=== PATIENT | female | born 1980 | race Two or more races ===

== ENCOUNTER 2017-05-07 20:27 | Emergency (ER) | payer MEDICAID, OTHER ==
[2017-05-07 20:42] VITALS: BP 155/83
[2017-05-07] MEDS ORDERED: Sodium Chloride 0.9% 1,000 ML IV ONE (20:45)
[2017-05-07] MEDS ORDERED: Ondansetron 4 MG/2 ML SDV IVPUSH ONE (20:45)
[2017-05-07] MEDS ORDERED: Ketorolac 30 MG/ML SDV IVPUSH ONE (20:45)
--- NOTE | 2017-05-07 20:48 | EDM.PDOC ---
<Ezra Gimenez - Last Filed: 05/08/17 06:55> ED HPI GENERAL MEDICAL PROBLEM - General Chief Complaint: Abdominal Pain Stated Complaint: Abdominal pain Time Seen by Provider: 05/07/17 20:30 - Related Data Allergies Allergy/AdvReac Type Severity Reaction Status Date / Time ibuprofen AdvReac Stomach Verified 05/08/17 17:36 Ache Home Meds: Home Meds Ciprofloxacin [IJD: Ciprofloxacin HCl] 500 mg PO BID #20 tab 05/07/17 [Rx] metroNIDAZOLE [Flagyl] 500 mg PO TID #21 tablet 05/07/17 [Rx] traMADol [Ultram] 50 mg PO Q6H PRN #10 tablet 05/07/17 [Rx] Dicyclomine [Bentyl] 20 mg PO Q6H PRN #8 tablet 05/08/17 [Rx] Course - Vital Signs Last Recorded V/S: Last Vital Signs Temp 100.8 F H 05/07/17 20:40 Pulse 108 H 05/07/17 20:40 Resp 20 05/07/17 20:40 BP 155/83 H 05/07/17 20:40 Pulse Ox 98 05/07/17 20:40 - Orders/Labs/Meds Labs: Laboratory Tests 05/07/17 05/07/17 05/07/17 Range/Units 20:40 20:50 20:50 WBC (3.98-10.04) K/mm3 RBC (3.98-5.22) M/mm3 Hgb (11.2-15.7) gm/L Hct (34.1-44.9) % MCV (79.4-94.8) fl MCH (25.6-32.2) pg MCHC (32.2-35.5) g/dl RDW Std Deviation (36.4-46.3) fL Plt Count (182-369) K/mm3 MPV (9.4-12.3) fl Neutrophils % (Manual) (40-60) % Band Neutrophils % (0-10) % Lymphocytes % (Manual) (20-40) % Atypical Lymphs % % Monocytes % (Manual) (2-10) % Eosinophils % (Manual) (0.7-5.8) % Basophils % (Manual) (0.1-1.2) Platelet Estimate RBC Morph Comment Sodium (136-145) mEq/L Potassium (3.5-5.1) mEq/L Chloride (98-107) mEq/L Carbon Dioxide (21-32) mEq/L Anion Gap (5-15) BUN (7-18) mg/dL Creatinine (0.55-1.02) mg/dL Est Cr Clr Drug Dosing mL/min Estimated GFR (MDRD) (>60) mL/min BUN/Creatinine Ratio (14-18) Glucose (74-106) mg/dL Calcium (8.5-10.1) mg/dL Total Bilirubin (0.2-1.0) mg/dL AST (15-37) U/L ALT (14-59) U/L Alkaline Phosphatase (46-116) U/L C-Reactive Protein (<1.0) mg/dL Total Protein (6.4-8.2) g/dl Albumin (3.4-5.0) g/dl Globulin gm/dL Albumin/Globulin Ratio (1-2) Lipase 74 (73-393) U/L Urine Color Yellow (Yellow) Urine Appearance Clear (Clear) Urine pH 7.0 (5.0-8.0) Ur Specific [place] 1.020 (1.005-1.030) Urine Protein Negative (Negative) Urine Glucose (UA) Negative (Negative) Urine Ketones Negative (Negative) Urine Occult Blood Negative (Negative) Urine Nitrite Negative (Negative) Urine Bilirubin Negative (Negative) Urine Urobilinogen 0.2 (0.2-1.0) Ur Leukocyte Esterase Negative (Negative) Urine RBC 0-5 (0-5) /hpf Urine WBC 0-5 (0-5) /hpf Ur Epithelial Cells 0-5 (0-5) /hpf Urine Bacteria Not seen (FEW) /hpf Urine Mucus Few (FEW) /hpf H. pylori IgG Antibody Positive H (NEGATIVE) 05/07/17 05/07/17 Range/Units 20:54 20:54 WBC 13.27 H (3.98-10.04) K/mm3 RBC 5.13 (3.98-5.22) M/mm3 Hgb 13.3 (11.2-15.7) gm/L Hct 40.4 (34.1-44.9) % MCV 78.8 L (79.4-94.8) fl MCH 25.9 (25.6-32.2) pg MCHC 32.9 (32.2-35.5) g/dl RDW Std Deviation 40.1 (36.4-46.3) fL Plt Count 259 (182-369) K/mm3 MPV 11.7 (9.4-12.3) fl Neutrophils % (Manual) 89 H (40-60) % Band Neutrophils % 0 (0-10) % Lymphocytes % (Manual) 8 L (20-40) % Atypical Lymphs % 0 % Monocytes % (Manual) 3 (2-10) % Eosinophils % (Manual) 0 L (0.7-5.8) % Basophils % (Manual) 0 L (0.1-1.2) Platelet Estimate Adequate RBC Morph Comment Normal Sodium 141 (136-145) mEq/L Potassium 3.2 L (3.5-5.1) mEq/L Chloride 101 (98-107) mEq/L Carbon Dioxide 27 (21-32) mEq/L Anion Gap 16.2 H (5-15) BUN 13 (7-18) mg/dL Creatinine 0.8 (0.55-1.02) mg/dL Est Cr Clr Drug Dosing 81.19 mL/min Estimated GFR (MDRD) > 60 (>60) mL/min BUN/Creatinine Ratio 16.3 (14-18) Glucose 102 (74-106) mg/dL Calcium 9.3 (8.5-10.1) mg/dL Total Bilirubin 0.6 (0.2-1.0) mg/dL AST 11 L (15-37) U/L ALT 18 (14-59) U/L Alkaline Phosphatase 90 (46-116) U/L C-Reactive Protein 10.7 H* (<1.0) mg/dL Total Protein 8.0 (6.4-8.2) g/dl Albumin 4.2 (3.4-5.0) g/dl Globulin 3.8 gm/dL Albumin/Globulin Ratio 1.1 (1-2) Lipase (73-393) U/L Urine Color (Yellow) Urine Appearance (Clear) Urine pH (5.0-8.0) Ur Specific [place] (1.005-1.030) Urine Protein (Negative) Urine Glucose (UA) (Negative) Urine Ketones (Negative) Urine Occult Blood (Negative) Urine Nitrite (Negative) Urine Bilirubin (Negative) Urine Urobilinogen (0.2-1.0) Ur Leukocyte Esterase (Negative) Urine RBC (0-5) /hpf Urine WBC (0-5) /hpf Ur Epithelial Cells (0-5) /hpf Urine Bacteria (FEW) /hpf Urine Mucus (FEW) /hpf H. pylori IgG Antibody (NEGATIVE) Meds: Medications Discontinued Medications Generic Name Dose Route Start Last Admin Trade Name Freq PRN Reason Stop Dose Admin Diatrizoate Meglum/Diatrizoate Sod 90 ml 05/07/17 22:11 05/07/17 22:51 Gastrografin 37% PO 05/07/17 22:12 90 ml ONETIME ONE Administration Dicyclomine HCl 20 mg 05/07/17 23:48 05/07/17 23:54 Bentyl PO 05/07/17 23:49 20 mg ONETIME ONE Administration Fentanyl 50 mcg 05/07/17 23:03 05/07/17 23:08 Sublimaze IVPUSH 05/07/17 23:04 50 mcg ONETIME ONE Administration Hydromorphone HCl 0.5 mg 05/07/17 21:30 05/07/17 21:38 Dilaudid IVPUSH 05/07/17 21:31 0.5 mg ONETIME ONE Administration Sodium Chloride 1,000 mls @ 999 mls/hr 05/07/17 20:45 05/07/17 20:57 Normal Saline IV 05/07/17 21:45 999 mls/hr ONETIME ONE Administration Levofloxacin/Dextrose 750 mg/ 150 mls @ 100 mls/hr 05/07/17 23:02 05/07/17 23 :09 Premix IV 05/08/17 00:31 100 mls/hr ONETIME ONE Administration Iopamidol 120 ml 05/07/17 22:11 05/07/17 22:51 Isovue-300 (61%) IVPUSH 05/07/17 22:12 120 ml ONETIME ONE Administration Ketorolac Tromethamine 30 mg 05/07/17 20:45 05/07/17 20:59 Toradol IVPUSH 05/07/17 20:46 30 mg ONETIME ONE Administration Lorazepam 0.5 mg 05/07/17 23:48 05/07/17 23:55 Ativan IVPUSH 05/07/17 23:49 0.5 mg ONETIME ONE Administration Metronidazole 500 mg 05/07/17 23:07 05/07/17 23:43 Flagyl PO 05/07/17 23:08 500 mg ONETIME ONE Administration Ondansetron HCl 4 mg 05/07/17 20:45 05/07/17 20:58 Zofran IVPUSH 05/07/17 20:46 4 mg ONETIME ONE Administration Sodium Chloride 10 ml 05/07/17 20:45 05/07/17 22:51 Saline Flush FLUSH 10 ml ASDIRECTED PRN Administration Keep Vein Open - Re-Assessments/Exams Free Text/Narrative Re-Assessment/Exam: 05/07/17 23:49 patient is having increased pain and pain medication has not really helped her much. She has had Dilaudid 0.5 mg and fentanyl 50 g IV as well as Toradol 30 mg IV for pain relief. She reports a strong cramping component to her pain. Therefore try Bentyl 20 mg by mouth and Ativan 0.5 mg IV adjuvant to her current pain medications. She is currently receiving 6 750 mg of Levaquin IV for diverticulitis diagnosed by CT exam. Departure - Departure Time of Disposition: 00:55 Disposition: Home, Self-Care 01 Clinical Impression: Diverticulitis Qualifiers: Diverticulitis site: large intestine Diverticulitis bleeding: without bleeding Diverticulitis complication: without perforation or abscess Qualified Code(s): K57.32 - Diverticulitis of large intestine without perforation or abscess without bleeding - Discharge Information Prescriptions: Ciprofloxacin [IJD: Ciprofloxacin HCl] 500 mg PO BID #20 tab Dicyclomine [Bentyl] 20 mg PO Q6H PRN #8 tablet PRN Reason: Abdominal cramps/diarrhea metroNIDAZOLE [Flagyl] 500 mg PO TID #21 tablet traMADol [Ultram] 50 mg PO Q6H PRN #10 tablet PRN Reason: Pain (Moderate 4-6) Instructions: Diverticulitis Referrals: PCP,None [Primary Care Provider] - Forms: ED Department Discharge Additional Instructions: Tylenol or Ibuprofen as needed for pain Tramadol 1 tab every 6 hours as needed for more severe pain Flagyl 500mg every 8 hours for a total of 7 days Ciprofloxacin 500mg twice a day for 10 days Follow-up with your primary care provider next week for recheck If you do not have a primary care provider, call our clinic to establish with one of our providers. Call [phone] to schedule Recommend colonoscopy after diverticulitis has been treated and has resolved. Return to ER with new or worsening symptoms Drink at least 80 oz of clear fluids per day Gillespie, gentle diet until symptoms resolve <Flor Jason - Last Filed: 05/10/17 19:41> ED HPI GENERAL MEDICAL PROBLEM - General Source of Information: Reports: Patient, RN Notes Reviewed History Limitations: Reports: No Limitations - History of Present Illness INITIAL COMMENTS - FREE TEXT/NARRATIVE: 37 year old female presents to the ED today with 2-3 day history of LUQ abdominal pain that radiates around to her left flank. Today she developed nausea and vomiting. She describes the emesis as "jello like." She denies coffee ground emesis. She denies heart burn, diarrhea, constipation, bloody stools, black stools, tarry stools, or change in bowel habits. No history of diverticulitis or h pylori. She reports frequency with urination but no dysuria or urgency. She's felt feverish and chilled. She denies medical history. She's had a tubal ligation but otherwise no other abdominal surgeries. Left Abdomen Pain Score (Numeric/FACES): 8 Past Medical History SPARE PERSON History: Reports: - Past Surgical History Female Surgical History: Reports: Tubal Ligation Social & Family History - Family History Family Medical History: Noncontributory - Tobacco Use Smoking Status *Q: Never Smoker - Caffeine Use Caffeine Use: Reports: Coffee, Soda - Recreational Drug Use Recreational Drug Use: No ED ROS GENERAL - Review of Systems Review Of Systems: See Below Constitutional: Reports: Fever, Chills, Malaise, Night Sweats Respiratory: Reports: No Symptoms. Denies: Shortness of Breath, Cough Cardiovascular: Reports: No Symptoms. Denies: Chest Pain GI/Abdominal: Reports: Abdominal Pain, Decreased Appetite, Nausea, Vomiting. Denies: Black Stool, Bloody Stool, Constipation, Diarrhea, Hematemesis, Melena : Reports: Flank Pain, Frequency. Denies: Dysuria, Hematuria, Urgency ED EXAM, GI/ABD - Physical Exam Exam: See Below Exam Limited By: No Limitations General Appearance: Alert, WD/WN, Mild Distress Respiratory/Chest: No Respiratory Distress, Lungs Clear, Normal Breath Sounds Cardiovascular: Normal Peripheral Pulses, No Murmur, Tachycardia GI/Abdominal Exam: Normal Bowel Sounds, Soft, No Distention, Guarding, Tender ( LUQ and LLQ). No: Rigid, Rebound, Mass Back Exam: Normal Inspection, Full Range of Motion, CVA Tenderness (L). No: CVA Tenderness (R) Course - Orders/Labs/Meds Labs: Laboratory Tests 05/07/17 05/07/17 05/07/17 Range/Units 20:40 20:50 20:50 WBC (3.98-10.04) K/mm3 RBC (3.98-5.22) M/mm3 Hgb (11.2-15.7) gm/L Hct (34.1-44.9) % MCV (79.4-94.8) fl MCH (25.6-32.2) pg MCHC (32.2-35.5) g/dl RDW Std Deviation (36.4-46.3) fL Plt Count (182-369) K/mm3 MPV (9.4-12.3) fl Neutrophils % (Manual) (40-60) % Band Neutrophils % (0-10) % Lymphocytes % (Manual) (20-40) % Atypical Lymphs % % Monocytes % (Manual) (2-10) % Eosinophils % (Manual) (0.7-5.8) % Basophils % (Manual) (0.1-1.2) Platelet Estimate RBC Morph Comment Sodium (136-145) mEq/L Potassium (3.5-5.1) mEq/L Chloride (98-107) mEq/L Carbon Dioxide (21-32) mEq/L Anion Gap (5-15) BUN (7-18) mg/dL Creatinine (0.55-1.02) mg/dL Est Cr Clr Drug Dosing mL/min Estimated GFR (MDRD) (>60) mL/min BUN/Creatinine Ratio (14-18) Glucose (74-106) mg/dL Calcium (8.5-10.1) mg/dL Total Bilirubin (0.2-1.0) mg/dL AST (15-37) U/L ALT (14-59) U/L Alkaline Phosphatase (46-116) U/L C-Reactive Protein (<1.0) mg/dL Total Protein (6.4-8.2) g/dl Albumin (3.4-5.0) g/dl Globulin gm/dL Albumin/Globulin Ratio (1-2) Lipase 74 (73-393) U/L Urine Color Yellow (Yellow) Urine Appearance Clear (Clear) Urine pH 7.0 (5.0-8.0) Ur Specific [place] 1.020 (1.005-1.030) Urine Protein Negative (Negative) Urine Glucose (UA) Negative (Negative) Urine Ketones Negative (Negative) Urine Occult Blood Negative (Negative) Urine Nitrite Negative (Negative) Urine Bilirubin Negative (Negative) Urine Urobilinogen 0.2 (0.2-1.0) Ur Leukocyte Esterase Negative (Negative) Urine RBC 0-5 (0-5) /hpf Urine WBC 0-5 (0-5) /hpf Ur Epithelial Cells 0-5 (0-5) /hpf Urine Bacteria Not seen (FEW) /hpf Urine Mucus Few (FEW) /hpf H. pylori IgG Antibody Positive H (NEGATIVE) 05/07/17 05/07/17 Range/Units 20:54 20:54 WBC 13.27 H (3.98-10.04) K/mm3 RBC 5.13 (3.98-5.22) M/mm3 Hgb 13.3 (11.2-15.7) gm/L Hct 40.4 (34.1-44.9) % MCV 78.8 L (79.4-94.8) fl MCH 25.9 (25.6-32.2) pg MCHC 32.9 (32.2-35.5) g/dl RDW Std Deviation 40.1 (36.4-46.3) fL Plt Count 259 (182-369) K/mm3 MPV 11.7 (9.4-12.3) fl Neutrophils % (Manual) 89 H (40-60) % Band Neutrophils % 0 (0-10) % Lymphocytes % (Manual) 8 L (20-40) % Atypical Lymphs % 0 % Monocytes % (Manual) 3 (2-10) % Eosinophils % (Manual) 0 L (0.7-5.8) % Basophils % (Manual) 0 L (0.1-1.2) Platelet Estimate Adequate RBC Morph Comment Normal Sodium 141 (136-145) mEq/L Potassium 3.2 L (3.5-5.1) mEq/L Chloride 101 (98-107) mEq/L Carbon Dioxide 27 (21-32) mEq/L Anion Gap 16.2 H (5-15) BUN 13 (7-18) mg/dL Creatinine 0.8 (0.55-1.02) mg/dL Est Cr Clr Drug Dosing 81.19 mL/min Estimated GFR (MDRD) > 60 (>60) mL/min BUN/Creatinine Ratio 16.3 (14-18) Glucose 102 (74-106) mg/dL Calcium 9.3 (8.5-10.1) mg/dL Total Bilirubin 0.6 (0.2-1.0) mg/dL AST 11 L (15-37) U/L ALT 18 (14-59) U/L Alkaline Phosphatase 90 (46-116) U/L C-Reactive Protein 10.7 H* (<1.0) mg/dL Total Protein 8.0 (6.4-8.2) g/dl Albumin 4.2 (3.4-5.0) g/dl Globulin 3.8 gm/dL Albumin/Globulin Ratio 1.1 (1-2) Lipase (73-393) U/L Urine Color (Yellow) Urine Appearance (Clear) Urine pH (5.0-8.0) Ur Specific [place] (1.005-1.030) Urine Protein (Negative) Urine Glucose (UA) (Negative) Urine Ketones (Negative) Urine Occult Blood (Negative) Urine Nitrite (Negative) Urine Bilirubin (Negative) Urine Urobilinogen (0.2-1.0) Ur Leukocyte Esterase (Negative) Urine RBC (0-5) /hpf Urine WBC (0-5) /hpf Ur Epithelial Cells (0-5) /hpf Urine Bacteria (FEW) /hpf Urine Mucus (FEW) /hpf H. pylori IgG Antibody (NEGATIVE) - Re-Assessments/Exams Free Text/Narrative Re-Assessment/Exam: CBC reveals WBC of 13,000 with no bands. CRP is 10.7. CMP reveals K 3.2, anion gap of 16. Otherwise CMP is normal. UA is negative for infection. H Pylori is positive. Lipase WNL [id number] Patient was treated with Toradol and Dilaudid initially. She had moderate improvement in pain. We switched to Fentanyl to see if this would offer better pain relief. CT of abdomen/pelvis obtained with oral contrast, read by Nexvet. Impression indicates diverticulitis with no perforation. Discussed with Dr. Gimenez who recommends that we treat her with Levaquin 750mg IV x1 now and Flagyl 500m PO now. Plan will be to discharge after IV antibiotics complete. This is the end of my shift. Dr. Gimenez will be assuming care. Departure - Departure Condition: Good
[2017-05-07] MEDS: Sodium Chloride 0.9% 10 ML Syringe FLUSH PRN ×2 (21:01→22:51)
[2017-05-07] MEDS ORDERED: HYDROmorphone 0.5 MG/0.5 ML Syringe IVPUSH ONE (21:30)
[2017-05-07] MEDS ORDERED: Diatrizoate Meglumine/Diatrizoate Sodium 37% 120 ML Bottle PO ONE (22:11)
[2017-05-07] MEDS ORDERED: Iopamidol 612 MG/ML 150 ML Bottle IVPUSH ONE (22:11)
[2017-05-07] MEDS ORDERED: Levofloxacin/Dextrose 5%-Water 750 MG in Premix Bag 1 BAG IV ONE (23:02)
[2017-05-07] MEDS ORDERED: fentaNYL 100 MCG/2 ML SDV IVPUSH ONE (23:03)
[2017-05-07] MEDS ORDERED: metroNIDAZOLE 500 MG Tab PO ONE (23:07)
[2017-05-07] MEDS ORDERED: LORazepam 2 MG/ML MDV IVPUSH ONE (23:48)
[2017-05-07] MEDS ORDERED: Dicyclomine 10 MG Cap PO ONE (23:48)
--- NOTE | 2017-05-08 07:17 | CT ---
CT abdomen and pelvis Technique: Multiple axial sections were obtained from above the dome of the diaphragm inferiorly through the pubic symphysis. Intravenous and oral contrast was utilized. Delayed images were also obtained through the bladder. Comparison: No prior abdominal imaging. Findings: Inflammatory type change is seen within the pararenal fascia and around portions of the descending colon. Diverticuli are seen in this area and inflammatory findings most likely represent diverticulitis. No fluid collections of abscess are seen at this time. No free air is identified. Visualized lung bases show nothing acute. Liver shows no focal abnormality. Spleen appears within normal limits. Adrenal glands show no nodule. Kidneys show symmetric contrast enhancement without hydronephrosis or mass. Pancreas is within normal limits. Gallbladder shows no calcified gallstones. Slight increased stool is noted within the colon. Mesenteric lymph nodes are seen within the right lower abdomen believed to be incidental. No pelvic mass or adenopathy is seen. Delayed images show contrast within the distal ureters and within the bladder. 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 Impression: 1. Left-sided inflammatory change, most likely representing diverticulitis within the left colon. No abscess is seen at this time. 2. Mild increased stool within the colon and other incidental findings as described above. Diagnostic code #3 Agree with preliminary report issued by [facility] ([facility] preliminary report dictated on 05/08/17, 12:05 AM Central Time)
== END 2017-05-08 00:54 | disposition home or self-care (01) ==
LOC: JD.ED 20:27
DX: K57.32 Diverticulitis of large intestine without perforation or abscess without bleeding (principal); Z88.6 Allergy status to analgesic agent; Z79.899 Other long term (current) drug therapy
CPT/HCPCS: 36415; 74177; 80053; 81001; 83690; 85025; 86140; 86677; 96361; 96365; 96366; 96375; 99284; A9270; J1170; J1885; J1956; J2060; J2405; J3010; J7040; J7050; Q9963; Q9967; 99223

== ENCOUNTER 2017-05-08 08:55 | Inpatient (IN) | payer MEDICAID, OTHER ==
--- NOTE | 2017-05-08 09:28 | EDM.PDOC ---
ED HPI GENERAL MEDICAL PROBLEM - General Chief Complaint: Abdominal Pain Stated Complaint: ABDOMINAL PAIN Time Seen by Provider: 05/08/17 09:28 - History of Present Illness INITIAL COMMENTS - FREE TEXT/NARRATIVE: 37-year-old female (returns emergency room with worsening abdominal pain. The patient was discharged early this morning with a diagnosis of diverticulitis she's been taking her medications as directed however her pain just continues to get worse. She denies fevers or chills but has significant left-sided abdominal discomfort. She has not had any chest pain breathing difficulties or shortness of breath her pain is limited to her abdomen occasionally lives to the epigastric area. She has not had any bloody stools. She was discharged on Cipro and Flagyl. Treatments [employer]: Reports: Other Medication(s) Abdominal Pain Score (Numeric/FACES): 10 Headache Pain Score (Numeric/FACES): 6 - Related Data Allergies Allergy/AdvReac Type Severity Reaction Status Date / Time ibuprofen AdvReac Stomach Verified 05/08/17 17:36 Ache Home Meds: Home Meds Ciprofloxacin [IJD: Ciprofloxacin HCl] 500 mg PO BID #20 tab 05/07/17 [Rx] metroNIDAZOLE [Flagyl] 500 mg PO TID #21 tablet 05/07/17 [Rx] traMADol [Ultram] 50 mg PO Q6H PRN #10 tablet 05/07/17 [Rx] Dicyclomine [Bentyl] 20 mg PO Q6H PRN #8 tablet 05/08/17 [Rx] Past Medical History - Past Health History Medical/Surgical History: Denies Medical/Surgical History Gastrointestinal History: Reports: Diverticulosis [employer]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 Denies: Bloody Stool : Reports: No Symptoms Neurological: Reports: No Symptoms ED EXAM, GI/ABD - Physical Exam Exam: See Below Exam Limited By: No Limitations General Appearance: Alert, Moderate Distress (From the discomfort) Head: Atraumatic, Normocephalic Neck: Normal Inspection, Supple, Non-Tender, Full Range of Motion Respiratory/Chest: No Respiratory Distress, Lungs Clear, Normal Breath Sounds Cardiovascular: Regular Rate, Rhythm, No Edema, No Murmur GI/Abdominal Exam: Normal Bowel Sounds, Soft, No Distention, Other (Patient has significant discomfort mostly in the left side worse over the sigmoid colon.). No: Guarding, Rigid, Rebound Course - Vital Signs Last Recorded V/S: Last Vital Signs Temp 36.7 C 05/09/17 12:23 Pulse 72 05/09/17 12:23 Resp 17 05/09/17 12:23 BP 109/90 05/09/17 12:23 Pulse Ox 96 05/09/17 12:23 - Orders/Labs/Meds Orders: Medication Orders Acetaminophen (Tylenol) 650 mg PO Q6H PRN PRN Reason: Pain (Mild 1-3) Last Admin: 05/09/17 08:46 Dose: 650 mg Famotidine (Pepcid) 20 mg PO BID [facility] Last Admin: 05/09/17 08:47 Dose: 20 mg Admin: 05/08/17 21:26 Dose: 20 mg Admin: 05/08/17 16:56 Dose: 20 mg Hydralazine HCl (Apresoline) 10 mg PO Q6H PRN PRN Reason: Hypertension Hydromorphone HCl (Dilaudid) 0.25 mg IVPUSH Q2H PRN PRN Reason: Pain (severe 7-10) Hyoscyamine (Hyomax-Sl) 0.125 mg SL Q6H PRN PRN Reason: Other Dextrose/Sodium Chloride (Dextrose 5%-1/2 Ns) 1,000 mls @ 100 mls/hr IV ASDIRECTED [facility] Last Admin: 05/09/17 04:16 Dose: 100 mls/hr Infusion: 05/09/17 04:16 Dose: 100 mls/hr Admin: 05/08/17 18:24 Dose: 100 mls/hr Metronidazole 500 mg/ Premix 100 mls @ 100 mls/hr IV Q6H [facility] Last Admin: 05/09/17 09:04 Dose: 100 mls/hr Infusion: 05/09/17 05:16 Dose: 100 mls/hr Admin: 05/09/17 04:16 Dose: 100 mls/hr Infusion: 05/08/17 22:27 Dose: 100 mls/hr Admin: 05/08/17 21:27 Dose: 100 mls/hr Infusion: 05/08/17 17:38 Dose: 100 mls/hr Admin: 05/08/17 16:38 Dose: 100 mls/hr Levofloxacin/Dextrose 500 mg/ (Premix) 100 mls @ 100 mls/hr IV Q24H [facility] Last Admin: 05/09/17 08:48 Dose: 100 mls/hr Potassium Chloride 10 meq/ (Premix) 100 mls @ 100 mls/hr IV Q1H [facility] Stop: 05/09/17 16:59 Ketorolac Tromethamine (Toradol) 30 mg IV Q6H PRN PRN Reason: Pain (moderate 4-6) Last Admin: 05/09/17 10:21 Dose: 30 mg Admin: 05/08/17 21:53 Dose: 30 mg Magnesium Sulfate (Pharmacy To Dose - Magnesium Replacement) 1 dose .XX ASDIRECTED PRN PRN Reason: RX to Dose Metoprolol Tartrate (Lopressor) 5 mg IVPUSH Q4H PRN PRN Reason: Tachycardia Ondansetron HCl (Zofran) 4 mg IV Q6H PRN PRN Reason: Nausea/Vomiting Ondansetron HCl (Zofran Odt) 4 mg PO Q4H PRN PRN Reason: Abdominal Cramping Last Admin: 05/09/17 12:20 Dose: 4 mg Potassium Chloride (Pharmacy To Dose - Potassium Replacement) 1 dose .XX ASDIRECTED PRN PRN Reason: RX to Dose Saccharomyces Boulardii (Florastor) 250 mg PO BID [facility] Last Admin: 05/09/17 08:47 Dose: 250 mg Admin: 05/08/17 21:27 Dose: 250 mg Admin: 05/08/17 16:38 Dose: 250 mg Temazepam (Restoril) 15 mg PO BEDTIME PRN PRN Reason: Sleep Labs: Laboratory Tests 05/08/17 05/08/17 05/08/17 Range/Units 10:44 10:44 10:44 WBC 13.84 H (3.98-10.04) K/mm3 RBC 4.89 (3.98-5.22) M/mm3 Hgb 12.8 (11.2-15.7) gm/L Hct 38.8 (34.1-44.9) % MCV 79.3 L (79.4-94.8) fl MCH 26.2 (25.6-32.2) pg MCHC 33.0 (32.2-35.5) g/dl RDW Std Deviation 40.7 (36.4-46.3) fL Plt Count 228 (182-369) K/mm3 MPV 11.5 (9.4-12.3) fl Neutrophils % (Manual) 85 H (40-60) % Band Neutrophils % 0 (0-10) % Lymphocytes % (Manual) 9 L (20-40) % Atypical Lymphs % 0 % Monocytes % (Manual) 6 (2-10) % Eosinophils % (Manual) 0 L (0.7-5.8) % Basophils % (Manual) 0 L (0.1-1.2) Platelet Estimate Adequate Hypochromasia Moderate RBC Morph Comment Not Reportable Sodium 140 (136-145) mEq/L Potassium 3.1 L (3.5-5.1) mEq/L Chloride 102 (98-107) mEq/L Carbon Dioxide 25 (21-32) mEq/L Anion Gap 16.1 H (5-15) BUN 10 (7-18) mg/dL Creatinine 0.7 (0.55-1.02) mg/dL Est Cr Clr Drug Dosing 92.79 mL/min Estimated GFR (MDRD) > 60 (>60) mL/min BUN/Creatinine Ratio 14.3 (14-18) Glucose 102 (74-106) mg/dL Calcium 8.9 (8.5-10.1) mg/dL Total Bilirubin 0.7 (0.2-1.0) mg/dL AST 10 L (15-37) U/L ALT 14 (14-59) U/L Alkaline Phosphatase 75 (46-116) U/L C-Reactive Protein 19.2 H* (<1.0) mg/dL Total Protein 7.5 (6.4-8.2) g/dl Albumin 3.6 (3.4-5.0) g/dl Globulin 3.9 gm/dL Albumin/Globulin Ratio 0.9 L (1-2) HCG, Qual Negative (NEGATIVE) Meds: Medications Generic Name Dose Route Start Last Admin Trade Name Freq PRN Reason Stop Dose Admin Acetaminophen 650 mg 05/08/17 16:19 05/09/17 08:46 Tylenol PO 650 mg Q6H PRN Administration Pain (Mild 1-3) Famotidine 20 mg 05/08/17 16:45 05/09/17 08:47 Pepcid PO 20 mg BID NETTE Administration Hydralazine HCl 10 mg 05/08/17 16:34 Apresoline PO Q6H PRN Hypertension Hydromorphone HCl 0.25 mg 05/08/17 15:30 Dilaudid IVPUSH Q2H PRN Pain (severe 7-10) Hyoscyamine 0.125 mg 05/09/17 12:20 Hyomax-Sl SL Q6H PRN Other Dextrose/Sodium Chloride 1,000 mls @ 100 mls/hr 05/08/17 15:30 05/09/17 04:16 Dextrose 5%-1/2 Ns IV 100 mls/hr ASDIRECTED NETTE Administration Metronidazole 500 mg/ Premix 100 mls @ 100 mls/hr 05/08/17 16:00 05/09/17 09: 04 IV 100 mls/hr Q6H NETTE Administration Levofloxacin/Dextrose 500 mg/ 100 mls @ 100 mls/hr 05/09/17 09:00 05/09/17 08 :48 Premix IV 100 mls/hr Q24H NETTE Administration Potassium Chloride 10 meq/ 100 mls @ 100 mls/hr 05/09/17 15:00 Premix IV 05/09/17 16:59 Q1H NETTE Ketorolac Tromethamine 30 mg 05/08/17 15:30 05/09/17 10:21 Toradol IV 30 mg Q6H PRN Administration Pain (moderate 4-6) Magnesium Sulfate 1 dose 05/08/17 16:45 Pharmacy To Dose - Magnesium Replacement .XX ASDIRECTED PRN RX to Dose Metoprolol Tartrate 5 mg 05/08/17 16:34 Lopressor IVPUSH Q4H PRN Tachycardia Ondansetron HCl 4 mg 05/08/17 15:30 Zofran IV Q6H PRN Nausea/Vomiting Ondansetron HCl 4 mg 05/09/17 12:03 05/09/17 12:20 Zofran Odt PO 4 mg Q4H PRN Administration Abdominal Cramping Potassium Chloride 1 dose 05/08/17 16:45 Pharmacy To Dose - Potassium Replacement .XX ASDIRECTED PRN RX to Dose Saccharomyces Boulardii 250 mg 05/08/17 16:00 05/09/17 08:47 Florastor PO 250 mg BID NETTE Administration Temazepam 15 mg 05/08/17 16:20 Restoril PO BEDTIME PRN Sleep Discontinued Medications Generic Name Dose Route Start Last Admin Trade Name Freq PRN Reason Stop Dose Admin Acetaminophen 650 mg 05/08/17 15:30 Tylenol RECTAL Q4H PRN Pain (mild 1-3) Dicyclomine HCl 20 mg 05/08/17 14:54 05/08/17 15:26 Bentyl PO 20 mg Q6H PRN Administration Abdominal cramps/diarrhea Diphenhydramine HCl 25 mg 05/08/17 16:50 05/08/17 16:56 Benadryl IVPUSH 05/08/17 16:51 25 mg ONETIME ONE Administration Enoxaparin Sodium 40 mg 05/08/17 16:30 05/08/17 19:00 Lovenox SUBCUT Not Given DAILY [facility] Hydromorphone HCl 0.5 mg 05/08/17 10:22 05/08/17 10:47 Dilaudid IVPUSH 05/08/17 10:23 0.5 mg ONETIME ONE Administration Lactated Ringer's 1,000 mls @ 150 mls/hr 05/08/17 10:30 05/08/17 10:43 Ringers, Lactated IV 150 mls/hr ASDIRECTED NETTE Administration Levofloxacin/Dextrose 500 mg/ 100 mls @ 100 mls/hr 05/08/17 17:00 05/08/17 16 :37 Premix IV 100 mls/hr Q24H NETTE Administration Magnesium Sulfate 1 dose 05/09/17 08:30 Pharmacy To Dose - Magnesium Replacement .XX ASDIRECTED [facility] Ondansetron HCl 4 mg 05/08/17 10:22 05/08/17 10:44 Zofran IVPUSH 05/08/17 10:23 4 mg ONETIME ONE Administration Potassium Chloride 60 meq 05/08/17 15:50 05/08/17 17:06 Potassium Chloride PO 05/08/17 15:51 Not Given ONETIME ONE Potassium Chloride 60 meq 05/08/17 17:17 05/08/17 17:42 Klor-Con M20 PO 05/08/17 17:18 60 meq ONETIME ONE Administration Potassium Chloride 1 dose 05/09/17 08:30 Pharmacy To Dose - Potassium Replacement .XX ASDIRECTED [facility] Potassium Chloride 40 meq 05/09/17 10:00 05/09/17 10:03 Klor-Con M20 PO 05/09/17 14:01 40 meq Q4H NETTE Administration - Re-Assessments/Exams Free Text/Narrative Re-Assessment/Exam: 05/08/17 13:04 Worsening diverticulitis her white count has not increased 2 months however her C-reactive protein is significantly higher than it was last night. The patient did have positive H. pylori last night however this doesn't seem to be what is causing her pain at this time with the uncertainty of the antibody test I will check a stool test. The patient is willing to stay in the hospital understands to be in the hospital probably several days. She'll benefit from IV antibiotics and IV fluids. Case discussed with Dr. Lei our hospitalist who will admit Departure - Departure Time of Disposition: 13:06 Disposition: Admitted As Inpatient 68 Clinical Impression: Diverticulitis Qualifiers: Diverticulitis site: large intestine Diverticulitis bleeding: without bleeding Diverticulitis complication: without perforation or abscess Qualified Code(s): K57.32 - Diverticulitis of large intestine without perforation or abscess without bleeding - Discharge Information
[2017-05-08] MEDS ORDERED: HYDROmorphone 0.5 MG/0.5 ML Syringe IVPUSH ONE (10:22)
[2017-05-08] MEDS ORDERED: Ondansetron 4 MG/2 ML SDV IVPUSH ONE (10:22)
[2017-05-08] MEDS ORDERED: Lactated Ringers 1,000 ML IV SCH (10:30)
[2017-05-08] MEDS ORDERED: Dicyclomine 10 MG Cap PO PRN (14:54)
--- NOTE | 2017-05-08 14:57 | PCM.HP ---
H&P History of Present Illness - General Date of Service: 05/08/17 Admit Problem/Dx: Diverticulitis Source of Information: Patient, Old Records, Provider, RN, RN Notes Reviewed History Limitations: Reports: No Limitations - History of Present Illness Initial Comments - Free Text/Narative: Hilary Godoy is a 37 year old female who presented to our ED on the evening of 05/07/17 with a 2-3 day history of left upper quadrant abdominal pain radiating around her left flank. She reported nausea and vomiting with the emesis described as "Jell-O-like." She denies coffee-ground emesis, heartburn, diarrhea, constipation, bloody stool, black stool, tarry stool, change in bowel habits. No history of diverticulitis or H. pylori. Reports increased frequency of urination but no urinary pain or urgency. She's been feverish and chilled. She denies any other relevant medical history. She did have a very low grade fever of 38.2 Celsius. Pulse was 108. Respirations 20. Blood pressure 135/83. Pulse 98. Labs were obtained: White blood count was elevated at 13.27. Hemoglobin normal at 13.3. Hematocrit normal at 40.4. She was microcytic. Pulses normal at 259,000. Neutrophils were elevated at 89. There is no bandemia. Sodium was good at 141. Potassium low at 3.2. Chloride normal at 101. Carbon dioxide normal at 27. Anion gap was high at 16.2. BUN normal at 13. Creatinine normal at 0.8. EGFR greater than 60. Total bilirubin normal at 0.6. AST slightly low at 11. ALT normal 18. Alk phosphatase normal at 90. CRP was elevated at 10.7. Albumin was normal at 4.2. UA was negative. Lipase was good at 74. H. pylori IgG antibody was positive. CT of the abdomen and pelvis interpreted by Dr. Durand: 1. Left-sided inflammatory change , most likely representing diverticulitis within the left colon. No abscess seen at this time. 2. Mild increased stool; and other incidental findings as described. She is given Dilaudid, fentanyl, and Toradol for pain relief. She reports a strong cramping component to her pain and Bentyl was started. Ativan was also given. She was discharged home on Cipro, Bentyl, Flagyl, and Ultram. Today (05/08/17) she returned to the ER this reporting 10 out of 10 abdominal pain. Temp was 36.6 Celsius. Pulse was 84. Respirations 16. Blood pressure 120/68. Pulse ox 100%. Labs were essentially the same. White blood count had increased slightly to 13.84. Rest of CBC was unremarkable. CMP still showed a low potassium at 3.1. Anion gap was still slightly elevated at 16.1. CMP was also essentially unchanged other than what's noted. CRP had increased to 19.2. As noted in the ER documentation, is unlikely the H. pylori is causing her pain but a stool test is ordered. She was subsequently admitted to the medical floor. She is a full code. She does not have a primary care provider listed. Abdominal Pain Score (Numeric/FACES): 4 - Related Data Allergies/Adverse Reactions: Allergies Allergy/AdvReac Type Severity Reaction Status Date / Time ibuprofen AdvReac Stomach Verified 05/08/17 17:36 Ache Home Medications: Home Meds Ciprofloxacin [IJD: Ciprofloxacin HCl] 500 mg PO BID #20 tab 05/07/17 [Rx] metroNIDAZOLE [Flagyl] 500 mg PO TID #21 tablet 05/07/17 [Rx] traMADol [Ultram] 50 mg PO Q6H PRN #10 tablet 05/07/17 [Rx] Dicyclomine [Bentyl] 20 mg PO Q6H PRN #8 tablet 05/08/17 [Rx] Past Medical History - Past Health History Medical/Surgical History: Denies Medical/Surgical History Gastrointestinal History: 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 Denies: Malaise, Fatigue, Night Sweats HEENT: Reports: Headaches (Left temporal region). Denies: Dysphasia, Ear Pain, Eye Pain, Hearing Changes, Post Nasal Drip, Sinus Congestion, Sore Throat, Visual Changes Pulmonary: Reports: No Symptoms. Denies: Shortness of Breath, Wheezing, Pleuritic Chest Pain, Cough, Sputum Cardiovascular: Reports: No Symptoms. Denies: Chest Pain, Palpitations, Dyspnea on Exertion, Orthopnea, Edema Gastrointestinal: Reports: Abdominal Pain (Epigastric and left lower quadrant), Diarrhea, Nausea, Vomiting. Denies: Anorexia, Black Stool, Bloody Stool, Constipation, Decreased Appetite, Difficulty Swallowing, Distension, Flatus, Hematemesis, Hematochezia, Melena, Stool Incontinence Genitourinary: Reports: Frequency. Denies: Dysuria, Burning, Pain, Urgency, Incontinence Musculoskeletal: Reports: No Symptoms. Denies: Neck Pain, Shoulder Pain, Arm Pain, Back Pain, Hand Pain, Leg Pain, Muscle Pain, Muscle Stiffness Skin: Reports: No Symptoms Psychiatric: Reports: No Symptoms. Denies: Confusion, Depression, Mood Lability , Anxiety Neurological: Reports: Headache, Weakness. Denies: Confusion, Dizziness, Numbness, Paresthesia, Pre-Existing Deficit, Gait Disturbance Hematologic/Lymphatic: Reports: No Symptoms Immunologic: Reports: No Symptoms Exam - Exam Exam: See Below - Vital Signs Vital Signs: Last Vital Signs Temp 99.7 F 05/08/17 14:11 Pulse 95 05/08/17 14:11 Resp 20 05/08/17 14:11 BP 137/81 05/08/17 14:11 Pulse Ox 97 05/08/17 14:11 Weight: 154 lb 9.6 oz - Exam Quality Assessment: DVT Prophylaxis General: Alert, Oriented, Cooperative HEENT: Conjunctiva Clear, EACs Clear, EOMI, Hearing Intact, Mucosa Moist & [place] , Nares Patent, Normal Nasal Septum, Posterior Pharynx Clear, Pupils Equal, Pupils Reactive Neck: Supple, Trachea Midline, Full Range of Motion. No: Lymphadenopathy, JVD Lungs: Clear to Auscultation, Normal Respiratory Effort Cardiovascular: Regular Rate, Regular Rhythm GI/Abdominal Exam: Normal Bowel Sounds, Soft, No Organomegaly, No Distention, No Abnormal Bruit, No Mass, Tender (Left lower quadrant> epigastric) (Female) Exam: Deferred Rectal (Female) Exam: Deferred Back Exam: Normal Inspection, Full Range of Motion Extremities: Normal Inspection, Normal Range of Motion, Non-Tender, No Pedal Edema, Normal Capillary Refill Peripheral Pulses: 3+: Radial (L), Radial (R), Posterior Tibial (L), Posterior Tibial (R), Dorsalis Pedis (L), Dorsalis Pedis (R) Skin: Warm, Dry, Intact Neurological: Cranial Nerves Intact (Grossly) Neuro Extensive - Mental Status: Alert, Oriented x3, Normal Mood/Affect, Normal Cognition, Memory Intact Neuro Extensive - Motor, Sensory, Reflexes: CN II-XII Intact (Grossly), Normal Gait Psychiatric: Alert, Normal Affect, Normal Mood Physical Exam Comments:: Patient examined while lying in bed. She does not appear to be in any distress. Abdominal pain worse in left lower quadrant. Reports 10 out of 10 pain on palpation. Epigastric pain also noted on palpation. - Patient Data Result Diagrams: 05/08/17 10:44 05/08/17 10:44 *Q Meaningful Use (ADM) - VTE *Q VTE Criteria *Q: - Stroke *Q Stroke Criteria *Q: - AMI *Q AMI Criteria *Q: - Problem List (1) Diverticulitis SNOMED Code(s): 655747341 ICD Code: K57.92 - DVTRCLI OF INTEST, PART UNSP, W/O PERF OR ABSCESS W/O BLEED Status: Acute Priority: High Current Visit: Yes Qualifiers: Diverticulitis site: large intestine Diverticulitis bleeding: without bleeding Diverticulitis complication: without perforation or abscess Qualified Code(s): K57.32 - Diverticulitis of large intestine without perforation or abscess without bleeding (2) Epigastric abdominal pain SNOMED Code(s): 93612563 ICD Code: R10.13 - EPIGASTRIC PAIN Status: Acute Priority: Medium Current Visit: Yes (3) Hypokalemia SNOMED Code(s): 15802306 ICD Code: E87.6 - HYPOKALEMIA Status: Acute Priority: High Current Visit: Yes (4) Headache SNOMED Code(s): 97414868 ICD Code: R51 - HEADACHE Status: Acute Priority: Low Current Visit: Yes Qualifiers: Headache type: tension-type Headache chronicity pattern: acute headache Intractability: not intractable Qualified Code(s): G44.209 - Tension-type headache, unspecified, not intractable Problem List Initiated/Reviewed/Updated: Yes Orders Last 24hrs: Active Orders 24 hr Category Date Time Status Dicyclomine Med 05/08/17 14:54 Ordered 20 mg PO Q6H PRN Code Status [Resuscitation Status] Routine Resus Stat 05/08/17 14:35 Ordered Medication Orders Lactated Ringer's (Ringers, Lactated) 1,000 mls @ 150 mls/hr IV [facility]RECTED [facility] Last Admin: 05/08/17 10:43 Dose: 150 mls/hr Non-Formulary Medication (Dicyclomine) 20 mg PO Q6H PRN PRN Reason: Abdominal cramps/diarrhea Assessment/Plan Comment:: I/P: Acute: Diverticulitis of large intestine -LLQ abdominal pain -In ED on 05/07/17 and 05/08/17 with symptoms -No known history of diverticulosis -Low grade fever yesterday in ED. WNL today. -No diarrhea/constipation -CT scan abdomen and pelvis with contrast on 05/07/17 -1. Left-sided inflammatory change, most likely representing diverticulitis within the left colon. No abscess seen at this time -2. Mild increased stool within the colon and other incidental findings -Failed outpatient treatment -Discharged from ED on Cipro 500mg BID, Flagyl 500 mg TID, Ultram 50 mg Q6 PRN, and Bntyl 20 mg Q6 PRN on 05/07/17 -CRP increased from 10.7 to 19.2 -WBC increased from 13.27 to 13.84 -UA negative -Prior tubal ligation - no other abdominal surgeries -NPO with medications and sips of water -IV Flagyl -IV Levaquin -Continue Bentyl PRN -Start probiotic -Fluids as indicated -Ambulate QID when awake -Pain medications as ordered -Stool O&P -Stool culture -Will recommend outpatient colonoscopy after discharge Epigastric abdominal pain -Less severe than LLQ abdominal pain -Has had nausea with vomiting -No known prior H. Pylori infection -Lipase 74 yesterday -Liver enzymes good today -AST 10 -ALT 14 -Alkaline phosphatase 75 -Albumin 3.6 -Serum H. Pylori positive -Stool H. Pylori ordered -PPI prescribed -Antibiotics prescribed as above -Will recommend possible EGD for definitive diagnosis if symptoms persist after discharge Hypokalemia -Likely 2/2 vomiting -Potassium 3.1 today -Will order 60 meq KCL PO now -Pharmacy to monitor and replete after Headache -Pain medications as indicated Chronic: Hx/o tubal ligation Plan: CM/SW for discharge planning PT for ambulation DVT/PE prophylaxis - ambulation and GARCIA ramey GI prophylaxis - Pepcid BID Routine AM labs Other orders as indicated above Establish with a primary care provider for outpatient follow-up Code Status: Full Code. She does not have a PCP listed - needs to establish.
[2017-05-08] MEDS ORDERED: HYDROmorphone 1 MG/ML Syringe IVPUSH PRN (15:30)
[2017-05-08] MEDS ORDERED: Acetaminophen 650 MG Supp RECTAL PRN (15:30)
[2017-05-08] MEDS ORDERED: Ondansetron 4 MG/2 ML SDV IV PRN (15:30)
[2017-05-08] MEDS ORDERED: Acetaminophen 325 MG Tab PO PRN (16:19)
[2017-05-08] MEDS ORDERED: Temazepam 15 MG Cap PO PRN (16:20)
[2017-05-08] MEDS ORDERED: Enoxaparin 40 MG/0.4 ML Syringe SUBCUT SCH (16:30)
[2017-05-08] MEDS ORDERED: Metoprolol Tartrate 5 MG/5 ML SDV IVPUSH PRN (16:34)
[2017-05-08] MEDS ORDERED: hydrALAZINE 10 MG Tab PO PRN (16:34)
[2017-05-08] MEDS: Potassium Chloride 10% 20 MEQ/15 ML Soln 30 ML UD Cup PO ONE ×2 (16:38→17:06)
[2017-05-08] MEDS: metroNIDAZOLE/Normal Saline 500 MG in Premix Bag 1 BAG IV SCH ×2 (16:38→21:27)
[2017-05-08] MEDS: Saccharomyces Boulardii (Probiotic) 250 MG Cap PO SCH ×2 (16:38→21:27)
[2017-05-08] MEDS ORDERED: diphenhydrAMINE 50 MG/ML SDV IVPUSH ONE (16:50)
[2017-05-08] MEDS: Famotidine 20 MG Tab PO SCH ×2 (16:56→21:26)
[2017-05-08] MEDS ORDERED: Levofloxacin/Dextrose 5%-Water 500 MG in Premix Bag 1 BAG IV SCH (17:00)
[2017-05-08] MEDS ORDERED: Potassium Chloride 20 MEQ Tab.ER PO ONE (17:17)
[2017-05-08] MEDS: Dextrose 5%-0.45% NaCl 1,000 ML IV SCH (18:24)
[2017-05-08] MEDS: Ketorolac 30 MG/ML SDV IV PRN (21:53)
[2017-05-09] MEDS: Dextrose 5%-0.45% NaCl 1,000 ML IV SCH ×2 (04:16→17:05)
[2017-05-09] MEDS: metroNIDAZOLE/Normal Saline 500 MG in Premix Bag 1 BAG IV SCH ×4 (04:16→21:30)
--- NOTE | 2017-05-09 08:20 | PCM.PN ---
- General Info Date of Service: 05/09/17 Admission Dx/Problem (Free Text): Diverticulitis Subjective Update: Follow Up Functional Status: Reports: Pain Controlled, Ambulating, Urinating. Denies: New Symptoms Pain Score: 5 - Review of Systems General: Denies: Fever, Weakness, Fatigue, Malaise, Chills HEENT: Reports: No Symptoms Pulmonary: Denies: Shortness of Breath Cardiovascular: Denies: Chest Pain Gastrointestinal: Reports: Abdominal Pain (left lower quadrant), Diarrhea, Flatus. Denies: Decreased Appetite, Nausea, Vomiting Genitourinary: Reports: No Symptoms Musculoskeletal: Reports: No Symptoms Skin: Denies: Cyanosis, Pallor, Diaphoresis, Rash Neurological: Denies: Confusion, Difficulty Walking, Weakness, Gait Disturbance Psychiatric: Denies: Depression, Anxiety, Agitation, Hallucinations Systems Review Comment:: No significant overnight or acute issues. She slept pretty good last night. Her pain is 5/10 this am-crampy in nature. She however feels much better. She has no new complaints. Her vitals are stable. Her stools studies came back pos for H. Pylori. - Patient Data Vitals - Most Recent: Last Vital Signs Temp 36.8 C 05/09/17 04:19 Pulse 84 05/09/17 04:19 Resp 12 05/09/17 04:19 BP 103/69 05/09/17 04:19 Pulse Ox 97 05/09/17 04:19 Weight - Most Recent: 70.216 kg I&O - Last 24 Hours: Intake & Output 05/08/17 05/09/17 05/09/17 22:59 06:59 14:59 Intake Total 200 1140 Balance 200 1140 Lab Results Last 24 Hours: Laboratory Results - last 24 hr 05/09/17 05/09/17 Range/Units 05:47 05:47 WBC 10.58 H (3.98-10.04) K/mm3 RBC 4.03 (3.98-5.22) M/mm3 Hgb 10.5 L (11.2-15.7) gm/L Hct 32.5 L (34.1-44.9) % MCV 80.6 (79.4-94.8) fl MCH 26.1 (25.6-32.2) pg MCHC 32.3 (32.2-35.5) g/dl RDW Std Deviation 40.9 (36.4-46.3) fL Plt Count 201 (182-369) K/mm3 MPV 11.8 (9.4-12.3) fl Neut % (Auto) 80.6 H (34.0-71.1) % Lymph % (Auto) 8.9 L (19.3-51.7) % [place] % (Auto) 9.5 (4.7-12.5) % Eos % (Auto) 0.6 L (0.7-5.8) Baso % (Auto) 0.1 (0.1-1.2) % Neut # (Auto) 8.53 H (1.56-6.13) K/mm3 Lymph # (Auto) 0.94 L (1.18-3.74) K/mm3 [place] # (Auto) 1.01 H (0.24-0.36) K/mm3 Eos # (Auto) 0.06 (0.04-0.36) K/mm3 Baso # (Auto) 0.01 (0.01-0.08) K/mm3 Manual Slide Review Abnormal smear Sodium 142 (136-145) mEq/L Potassium 3.4 L (3.5-5.1) mEq/L Chloride 107 (98-107) mEq/L Carbon Dioxide 24 (21-32) mEq/L Anion Gap 14.4 (5-15) BUN 9 (7-18) mg/dL Creatinine 0.6 (0.55-1.02) mg/dL Est Cr Clr Drug Dosing 108.26 mL/min Estimated GFR (MDRD) > 60 (>60) mL/min BUN/Creatinine Ratio 15.0 (14-18) Glucose 112 H (74-106) mg/dL Calcium 8.3 L (8.5-10.1) mg/dL Magnesium 2.0 (1.8-2.4) mg/dl C-Reactive Protein 24.2 H* (<1.0) mg/dL Med Orders - Current: Current Medications Acetaminophen (Tylenol) 650 mg PO Q6H PRN PRN Reason: Pain (Mild 1-3) Dicyclomine HCl (Bentyl) 20 mg PO Q6H PRN PRN Reason: Abdominal cramps/diarrhea Last Admin: 05/08/17 15:26 Dose: 20 mg Famotidine (Pepcid) 20 mg PO BID [facility] Last Admin: 05/08/17 21:26 Dose: 20 mg Hydralazine HCl (Apresoline) 10 mg PO Q6H PRN PRN Reason: Hypertension Hydromorphone HCl (Dilaudid) 0.25 mg IVPUSH Q2H PRN PRN Reason: Pain (severe 7-10) Dextrose/Sodium Chloride (Dextrose 5%-1/2 Ns) 1,000 mls @ 100 mls/hr IV ASDIRECTED [facility] Last Admin: 05/09/17 04:16 Dose: 100 mls/hr Levofloxacin/Dextrose 500 mg/ (Premix) 100 mls @ 100 mls/hr IV Q24H [facility] Last Admin: 05/08/17 16:37 Dose: 100 mls/hr Metronidazole 500 mg/ Premix 100 mls @ 100 mls/hr IV Q6H [facility] Last Admin: 05/09/17 04:16 Dose: 100 mls/hr Ketorolac Tromethamine (Toradol) 30 mg IV Q6H PRN PRN Reason: Pain (moderate 4-6) Last Admin: 05/08/17 21:53 Dose: 30 mg Magnesium Sulfate (Pharmacy To Dose - Magnesium Replacement) 1 dose .XX ASDIRECTED [facility] Metoprolol Tartrate (Lopressor) 5 mg IVPUSH Q4H PRN PRN Reason: Tachycardia Ondansetron HCl (Zofran) 4 mg IV Q6H PRN PRN Reason: Nausea/Vomiting Potassium Chloride (Pharmacy To Dose - Potassium Replacement) 1 dose .XX ASDIRECTED [facility] Saccharomyces Boulardii (Florastor) 250 mg PO BID [facility] Last Admin: 05/08/17 21:27 Dose: 250 mg Temazepam (Restoril) 15 mg PO BEDTIME PRN PRN Reason: Sleep Discontinued Medications Acetaminophen (Tylenol) 650 mg RECTAL Q4H PRN PRN Reason: Pain (mild 1-3) Diphenhydramine HCl (Benadryl) 25 mg IVPUSH ONETIME ONE Stop: 05/08/17 16:51 Last Admin: 05/08/17 16:56 Dose: 25 mg Enoxaparin Sodium (Lovenox) 40 mg SUBCUT DAILY [facility] Last Admin: 05/08/17 19:00 Dose: Not Given Hydromorphone HCl (Dilaudid) 0.5 mg IVPUSH ONETIME ONE Stop: 05/08/17 10:23 Last Admin: 05/08/17 10:47 Dose: 0.5 mg Lactated Ringer's (Ringers, Lactated) 1,000 mls @ 150 mls/hr IV ASDIRECTED [facility] Last Admin: 05/08/17 10:43 Dose: 150 mls/hr Ondansetron HCl (Zofran) 4 mg IVPUSH ONETIME ONE Stop: 05/08/17 10:23 Last Admin: 05/08/17 10:44 Dose: 4 mg Potassium Chloride (Potassium Chloride) 60 meq PO ONETIME ONE Stop: 05/08/17 15:51 Last Admin: 05/08/17 17:06 Dose: Not Given Potassium Chloride (Klor-Con M20) 60 meq PO ONETIME ONE Stop: 05/08/17 17:18 Last Admin: 05/08/17 17:42 Dose: 60 meq - Exam General: Alert, Oriented, Cooperative, No Acute Distress HEENT: Pupils Equal, Pupils Reactive, EOMI, Mucous Membr. Moist/[place] Neck: Supple, Trachea Midline, No JVD, No Thyromegaly Lungs: Clear to Auscultation, Normal Respiratory Effort Cardiovascular: Regular Rate, Regular Rhythm GI/Abdominal Exam: Normal Bowel Sounds, Soft, No Organomegaly, No Distention, No Abnormal Bruit, No Mass, Tender (left lower quadrant) (Female) Exam: Deferred Back Exam: Normal Inspection, Full Range of Motion Extremities: Normal Inspection, Normal Range of Motion, Non-Tender, No Pedal Edema, Normal Capillary Refill Peripheral Pulses: 3+: Posterior Tibial (L), Posterior Tibial (R), Dorsalis Pedis (L), Dorsalis Pedis (R) Skin: Warm, Dry, Intact Neurological: No New Focal Deficit Psy/Mental Status: Alert, Normal Affect, Normal Mood - Problem List Review Problem List Initiated/Reviewed/Updated: Yes - My Orders Last 24 Hours: My Active Orders 05/08/17 14:35 Code Status [Resuscitation Status] Routine - Plan Plan:: Impression/Plan: Acute: Diverticulitis of large intestine - LLQ abdominal pain - In ED on 05/07/17 and 05/08/17 with symptoms - No known history of diverticulosis - No diarrhea/constipation - CT scan abdomen and pelvis with contrast on 05/07/17 1. Left-sided inflammatory change, most likely representing diverticulitis within the left colon. No abscess seen at this time 2. Mild increased stool within the colon and other incidental findings - Discharged from ED on Cipro 500mg BID, Flagyl 500 mg TID, Ultram 50 mg Q6 PRN, and Bntyl 20 mg Q6 PRN on 05/07/17 - CRP increasin.7--> 19.2 --> 24.2 - WBC improved 13.84--> 10.58 - UA negative - Prior tubal ligation - no other abdominal surgeries - NPO with medications and sips of water - Continue IV Flagyl 500 mg TID and Probiotic; Discontinue IV Levaquin and PRN Bentyl - Encourage to Ambulate QID as tolerated - Pain medications as ordered - Will recommend outpatient colonoscopy after discharge Epigastric Abdominal Pain, Improved - LLQ Abdominal pain - Has no nausea with vomiting - No known prior H. Pylori infection - Liver/Lipase enzymes are normal - Serum and Stool Cx H. Pylori positive - Start PRN Levsin for Abdominal Cramps - Continue PPI - Antibiotics prescribed as above - Will recommend possible EGD for definitive diagnosis if symptoms persist after discharge Helicobacter Pylori Infection - Clarithromycin Triple Therapy - Continue PPI and Flagyl - Start Clarithromycin 500 mg po BID Mild Hypokalemia, Improved - K 3.1 --> 3.4 - 2/2 GI Loss - Pharmacy to monitor and replete Resolved: Headache - Pain medications as indicated Chronic: Hx/o tubal ligation Plan: She is clinically stable Continue treatment Routine AM Labs Start clear liquids diet and advance as tolerated DVT/PE prophylaxis - ambulation and GARCIA hose GI prophylaxis -PPI BID; D/c H2B Additional orders as above Establish with a primary care provider for outpatient follow-up CM/SW for discharge planning Code Status: Full Code. She does not have a PCP listed - needs to establish
[2017-05-09] MEDS: Famotidine 20 MG Tab PO SCH ×2 (08:47→21:31)
[2017-05-09] MEDS: Saccharomyces Boulardii (Probiotic) 250 MG Cap PO SCH ×2 (08:47→21:31)
[2017-05-09] MEDS ORDERED: Levofloxacin/Dextrose 5%-Water 500 MG in Premix Bag 1 BAG IV SCH (09:00)
[2017-05-09] MEDS ORDERED: Potassium Chloride 20 MEQ Tab.ER PO SCH (10:00)
[2017-05-09] MEDS: Ketorolac 30 MG/ML SDV IV PRN ×2 (10:21→17:03)
[2017-05-09] MEDS ORDERED: Hyoscyamine 0.125 MG Tab.SL SL PRN (12:20)
[2017-05-09] MEDS: Ondansetron 4 MG Tab.DIS PO PRN (12:20)
[2017-05-09] MEDS: Potassium Chloride 10 MEQ in Premix Bag 1 BAG IV SCH ×2 (14:16→15:19)
[2017-05-10] MEDS: Ketorolac 30 MG/ML SDV IV PRN (01:46)
[2017-05-10] MEDS: Dextrose 5%-0.45% NaCl 1,000 ML IV SCH ×2 (04:54→13:27)
[2017-05-10] MEDS: metroNIDAZOLE/Normal Saline 500 MG in Premix Bag 1 BAG IV SCH ×4 (04:54→22:17)
[2017-05-10] MEDS ORDERED: Pantoprazole 40 MG Tab.CR PO SCH (07:00)
--- NOTE | 2017-05-10 08:24 | PCM.PN ---
- General Info Date of Service: 05/10/17 Admission Dx/Problem (Free Text): Diverticulitis Subjective Update: Follow Up Functional Status: Reports: Pain Controlled, Tolerating Diet (chicken broth only ), Ambulating, Urinating. Denies: New Symptoms - Review of Systems General: Denies: Fever, Weakness, Fatigue HEENT: Reports: No Symptoms Pulmonary: Denies: Shortness of Breath Cardiovascular: Denies: Chest Pain Gastrointestinal: Reports: Abdominal Pain, Diarrhea, Flatus, Nausea. Denies: Vomiting Genitourinary: Reports: No Symptoms Musculoskeletal: Reports: No Symptoms Skin: Denies: Cyanosis, Pallor, Diaphoresis, Rash Neurological: Denies: Confusion, Difficulty Walking, Weakness, Gait Disturbance Psychiatric: Denies: Depression, Anxiety, Agitation, Hallucinations Systems Review Comment:: No overnight or acute issues. She slept pretty good. She had 2-3 watery diarrhea last night (6 the night before). Her pain is 8/10. This woke her up early this am. She is nauseous w/o emesis. Her pain is now sharp in nature and not moved to her mid lower abdomen. She did not tolerate gello but okay with chicken broth. She is afebrile w/o leukocytosis. - Patient Data Vitals - Most Recent: Last Vital Signs Temp 36.8 C 05/10/17 04:53 Pulse 66 05/10/17 04:53 Resp 14 05/10/17 04:53 BP 105/72 05/10/17 04:53 Pulse Ox 94 L 05/10/17 04:53 Weight - Most Recent: 70.352 kg I&O - Last 24 Hours: Intake & Output 05/09/17 05/10/17 05/10/17 22:59 06:59 14:59 Intake Total 2019 1489 Balance 2019 1489 Lab Results Last 24 Hours: Laboratory Results - last 24 hr 05/10/17 05/10/17 Range/Units 05:54 05:54 WBC 8.35 (3.98-10.04) K/mm3 RBC 3.87 L (3.98-5.22) M/mm3 Hgb 10.1 L (11.2-15.7) gm/L Hct 31.2 L (34.1-44.9) % MCV 80.6 (79.4-94.8) fl MCH 26.1 (25.6-32.2) pg MCHC 32.4 (32.2-35.5) g/dl RDW Std Deviation 40.1 (36.4-46.3) fL Plt Count 220 (182-369) K/mm3 MPV 11.6 (9.4-12.3) fl Neut % (Auto) 70.5 (34.0-71.1) % Lymph % (Auto) 17.0 L (19.3-51.7) % [place] % (Auto) 9.8 (4.7-12.5) % Eos % (Auto) 2.5 (0.7-5.8) Baso % (Auto) 0.1 (0.1-1.2) % Neut # (Auto) 5.88 (1.56-6.13) K/mm3 Lymph # (Auto) 1.42 (1.18-3.74) K/mm3 [place] # (Auto) 0.82 H (0.24-0.36) K/mm3 Eos # (Auto) 0.21 (0.04-0.36) K/mm3 Baso # (Auto) 0.01 (0.01-0.08) K/mm3 Sodium 143 (136-145) mEq/L Potassium 3.4 L (3.5-5.1) mEq/L Chloride 108 H (98-107) mEq/L Carbon Dioxide 24 (21-32) mEq/L Anion Gap 14.4 (5-15) BUN 5 L (7-18) mg/dL Creatinine 0.6 (0.55-1.02) mg/dL Est Cr Clr Drug Dosing 108.26 mL/min Estimated GFR (MDRD) > 60 (>60) mL/min BUN/Creatinine Ratio 8.3 L (14-18) Glucose 106 (74-106) mg/dL Calcium 8.2 L (8.5-10.1) mg/dL Magnesium 2.0 (1.8-2.4) mg/dl C-Reactive Protein 16.7 H* (<1.0) mg/dL Jorge Alberto Results Last 24 Hours: Microbiology 05/09/17 15:35 Helicobacter pylori Antigen - Final Stool / Feces - Stool, Liquid Positive H Pylori Ag Med Orders - Current: Current Medications Acetaminophen (Tylenol) 650 mg PO Q6H PRN PRN Reason: Pain (Mild 1-3) Last Admin: 05/09/17 08:46 Dose: 650 mg Clarithromycin (Biaxin) 500 mg PO BID [facility] Hydralazine HCl (Apresoline) 10 mg PO Q6H PRN PRN Reason: Hypertension Hydromorphone HCl (Dilaudid) 0.25 mg IVPUSH Q2H PRN PRN Reason: Pain (severe 7-10) Last Admin: 05/09/17 16:27 Dose: 0.25 mg Hyoscyamine (Hyomax-Sl) 0.125 mg SL Q6H PRN PRN Reason: Other Dextrose/Sodium Chloride (Dextrose 5%-1/2 Ns) 1,000 mls @ 100 mls/hr IV ASDIRECTED [facility] Last Admin: 05/10/17 04:54 Dose: 100 mls/hr Metronidazole 500 mg/ Premix 100 mls @ 100 mls/hr IV Q6H [facility] Last Admin: 05/10/17 04:54 Dose: 100 mls/hr Ketorolac Tromethamine (Toradol) 30 mg IV Q6H PRN PRN Reason: Pain (moderate 4-6) Last Admin: 05/10/17 01:46 Dose: 30 mg Magnesium Sulfate (Pharmacy To Dose - Magnesium Replacement) 1 dose .XX ASDIRECTED PRN PRN Reason: RX to Dose Metoprolol Tartrate (Lopressor) 5 mg IVPUSH Q4H PRN PRN Reason: Tachycardia Ondansetron HCl (Zofran) 4 mg IV Q6H PRN PRN Reason: Nausea/Vomiting Ondansetron HCl (Zofran Odt) 4 mg PO Q4H PRN PRN Reason: Abdominal Cramping Last Admin: 05/09/17 12:20 Dose: 4 mg Pantoprazole Sodium (Protonix) 40 mg PO BIDAC [facility] Last Admin: 05/10/17 06:47 Dose: 40 mg Potassium Chloride (Pharmacy To Dose - Potassium Replacement) 1 dose .XX ASDIRECTED PRN PRN Reason: RX to Dose Saccharomyces Boulardii (Florastor) 250 mg PO BID [facility] Last Admin: 05/09/17 21:31 Dose: 250 mg Temazepam (Restoril) 15 mg PO BEDTIME PRN PRN Reason: Sleep Discontinued Medications Acetaminophen (Tylenol) 650 mg RECTAL Q4H PRN PRN Reason: Pain (mild 1-3) Dicyclomine HCl (Bentyl) 20 mg PO Q6H PRN PRN Reason: Abdominal cramps/diarrhea Last Admin: 05/08/17 15:26 Dose: 20 mg Diphenhydramine HCl (Benadryl) 25 mg IVPUSH ONETIME ONE Stop: 05/08/17 16:51 Last Admin: 05/08/17 16:56 Dose: 25 mg Enoxaparin Sodium (Lovenox) 40 mg SUBCUT DAILY [facility] Last Admin: 05/08/17 19:00 Dose: Not Given Famotidine (Pepcid) 20 mg PO BID [facility] Last Admin: 05/09/17 21:31 Dose: 20 mg Hydromorphone HCl (Dilaudid) 0.5 mg IVPUSH ONETIME ONE Stop: 05/08/17 10:23 Last Admin: 05/08/17 10:47 Dose: 0.5 mg Lactated Ringer's (Ringers, Lactated) 1,000 mls @ 150 mls/hr IV ASDIRECTED [facility] Last Admin: 05/08/17 10:43 Dose: 150 mls/hr Levofloxacin/Dextrose 500 mg/ (Premix) 100 mls @ 100 mls/hr IV Q24H [facility] Last Admin: 05/08/17 16:37 Dose: 100 mls/hr Levofloxacin/Dextrose 500 mg/ (Premix) 100 mls @ 100 mls/hr IV Q24H [facility] Last Admin: 05/09/17 08:48 Dose: 100 mls/hr Potassium Chloride 10 meq/ (Premix) 100 mls @ 100 mls/hr IV Q1H [facility] Stop: 05/09/17 16:59 Last Admin: 05/09/17 15:19 Dose: 100 mls/hr Magnesium Sulfate (Pharmacy To Dose - Magnesium Replacement) 1 dose .XX ASDIRECTED [facility] Ondansetron HCl (Zofran) 4 mg IVPUSH ONETIME ONE Stop: 05/08/17 10:23 Last Admin: 05/08/17 10:44 Dose: 4 mg Potassium Chloride (Potassium Chloride) 60 meq PO ONETIME ONE Stop: 05/08/17 15:51 Last Admin: 05/08/17 17:06 Dose: Not Given Potassium Chloride (Klor-Con M20) 60 meq PO ONETIME ONE Stop: 05/08/17 17:18 Last Admin: 05/08/17 17:42 Dose: 60 meq Potassium Chloride (Pharmacy To Dose - Potassium Replacement) 1 dose .XX ASDIRECTED [facility] Potassium Chloride (Klor-Con M20) 40 meq PO Q4H [facility] Stop: 05/09/17 14:01 Last Admin: 05/09/17 10:03 Dose: 40 meq - Exam General: Alert, Oriented, Cooperative, No Acute Distress, Other (She is comfortable) HEENT: Pupils Equal, Pupils Reactive, EOMI, Mucous Membr. Moist/[place] Neck: Supple, Trachea Midline, No JVD Lungs: Clear to Auscultation, Normal Respiratory Effort Cardiovascular: Regular Rate, Regular Rhythm GI/Abdominal Exam: Normal Bowel Sounds, Soft, No Organomegaly, No Distention, No Abnormal Bruit, No Mass, Tender (left quadrant and mid-lower abdomen) (Female) Exam: Deferred Back Exam: Normal Inspection Extremities: Normal Inspection, Normal Range of Motion, Non-Tender, No Pedal Edema, Normal Capillary Refill Peripheral Pulses: 3+: Posterior Tibial (L), Posterior Tibial (R), Dorsalis Pedis (L), Dorsalis Pedis (R) Skin: Warm, Dry, Intact Neurological: No New Focal Deficit Psy/Mental Status: Alert, Normal Affect, Normal Mood - Problem List Review Problem List Initiated/Reviewed/Updated: Yes - My Orders Last 24 Hours: My Active Orders 05/09/17 12:03 Ondansetron [Zofran ODT] 4 mg PO Q4H PRN 05/09/17 12:20 Hyoscyamine [Hyomax-SL] 0.125 mg SL Q6H PRN 05/10/17 07:00 Pantoprazole [ProTONIX] 40 mg PO BIDAC 05/10/17 09:00 Clarithromycin [Biaxin] 500 mg PO BID - Plan Plan:: Impression/Plan: Acute: Diverticulitis of Large Intestine, Improving - LLQ abdominal pain - In ED on 05/07/17 and 05/08/17 with symptoms - No known history of diverticulosis - Less Diarrhea last night than the night before - CT scan abdomen and pelvis with contrast on 05/07/17 1. Left-sided inflammatory change, most likely representing diverticulitis within the left colon. No abscess seen at this time 2. Mild increased stool within the colon and other incidental findings - Discharged from ED on Cipro 500mg BID, Flagyl 500 mg TID, Ultram 50 mg Q6 PRN, and Bntyl 20 mg Q6 PRN on 05/07/17 - CRP increasin.70 --> 19.20 --> 24.20 --> 16.7 (improving) - WBC improved: 13.84 --> 10.58 --> 08.35 (resolved) - UA negative - Prior tubal ligation -- no other abdominal surgeries - Resume NPO with medications and sips of water - Continue IV Flagyl 500 mg TID, Oral Clarithromycin 500 mg BID, and Probiotic - Encourage to Ambulate QID as tolerated - Pain medications as ordered - Will recommend outpatient colonoscopy after discharge Epigastric Abdominal Pain, Worse this AM - LLQ Abdominal pain and no at mid-lower abdomen - Has no nausea with vomiting - No known prior H. Pylori infection - Liver/Lipase enzymes are normal - Serum and Stool Cx H. Pylori positive - Continue PRN Levsin for Abdominal Cramps and PPI - Antibiotics prescribed as above - 1 mg IVP Dilauid PRN for additional pain control - consult with Dr. Garcia for further eval - IV/Oral Abdomen/Pelvis CT scan to r/o micro-perforation - Will recommend possible EGD for definitive diagnosis if symptoms persist after discharge Helicobacter Pylori Infection - Continue Clarithromycin Triple Therapy Mild Hypokalemia, Improved - K 3.1 --> same 3.4 today - 2/2 GI Loss - Pharmacy to monitor and replete Resolved: Headache - Pain medications as indicated Chronic: Hx/o tubal ligation Plan: She remains clinically stable Continue treatment Routine AM Labs Resume NPO status except sips of water and ice chips DVT/PE prophylaxis - ambulation and GARCIA hose GI prophylaxis - PPI BID Consulted Dr. Garcia for further input Additional orders as above Establish with a primary care provider for outpatient follow-up CM/SW for discharge planning Code Status: Full Code. She does not have a PCP listed - needs to establish
[2017-05-10] MEDS: Saccharomyces Boulardii (Probiotic) 250 MG Cap PO SCH ×2 (08:43→22:15)
[2017-05-10] MEDS: Ondansetron 4 MG Tab.DIS PO PRN (09:01)
[2017-05-10] MEDS ORDERED: Dextrose 5%-0.45% NaCl 1,000 ML IV SCH (11:15)
[2017-05-10] MEDS ORDERED: Diatrizoate Meglumine/Diatrizoate Sodium 37% 120 ML Bottle PO ONE (11:59)
[2017-05-10] MEDS ORDERED: Sodium Chloride 0.9% 10 ML Syringe FLUSH ONE (11:59)
[2017-05-10] MEDS ORDERED: Iopamidol 612 MG/ML 100 ML Bottle IVPUSH ONE (11:59)
[2017-05-10] MEDS: HYDROmorphone 1 MG/ML Syringe IVPUSH PRN ×2 (12:04→17:36)
[2017-05-10] MEDS: Potassium Chloride 10 MEQ in Premix Bag 1 BAG IV SCH ×4 (13:24→20:22)
[2017-05-10] MEDS ORDERED: Piperacillin/Tazobactam 3.375 GM in Sodium Chloride 0.9% 100 ML IV SCH (14:45)
[2017-05-10] MEDS ORDERED: Piperacillin/Tazobactam 4.5 GM in Sodium Chloride 0.9% 100 ML IV ONE (15:00)
[2017-05-10] MEDS: Pantoprazole 40 MG Vial IVPUSH SCH (16:04)
[2017-05-10] MEDS: Acetaminophen/Butalbital/Caffeine 325-50-40 MG Tab PO PRN (22:11)
[2017-05-10] MEDS: Piperacillin/Tazobactam 4.5 GM in Sodium Chloride 0.9% 100 ML IV SCH (22:36)
[2017-05-11] MEDS: HYDROmorphone 1 MG/ML Syringe IVPUSH PRN ×2 (01:28→14:34)
[2017-05-11] MEDS: Dextrose 5%-0.45% NaCl 1,000 ML IV SCH ×3 (01:40→22:30)
[2017-05-11] MEDS: metroNIDAZOLE/Normal Saline 500 MG in Premix Bag 1 BAG IV SCH ×4 (03:22→22:30)
[2017-05-11] MEDS ORDERED: Meperidine PF 50 MG/ML Syringe IVPUSH PRN (03:57)
[2017-05-11] MEDS: Piperacillin/Tazobactam 4.5 GM in Sodium Chloride 0.9% 100 ML IV SCH ×3 (06:30→22:31)
[2017-05-11] MEDS: Pantoprazole 40 MG Vial IVPUSH SCH ×2 (06:30→17:40)
--- NOTE | 2017-05-11 07:16 | CT ---
CT abdomen and pelvis Technique: Multiple axial sections were obtained from above the dome of the diaphragm inferiorly through the pubic symphysis. Intravenous and oral contrast has been given. Comparison: Previous CT exam performed on 05/07/17. Findings: Minimal bilateral pleural effusions are seen. Slight bibasilar atelectasis is noted. These findings are an interval change from prior exam. Liver shows no focal parenchymal abnormality. Spleen appears within normal limits. Adrenal glands show no nodule. Kidneys show symmetric contrast enhancement without hydronephrosis or mass. Pancreas appears within normal limits. Gallbladder shows no calcified gallstones. Aorta shows no aneurysmal dilatation. No retroperitoneal adenopathy or mesenteric abnormalities are seen. Appendix is seen which appears normal. No pelvic mass or adenopathy is seen. Mild bowel wall thickening seen within the left colon with surrounding inflammatory change. Small amount of extraluminal air is identified in this area of inflammatory change. Findings are felt compatible with a perforated diverticulum compatible with diverticulitis. No fluid collections of abscess are seen at this time. Inflammatory change and other changes of diverticulitis remain fairly stable from prior exam. Impression: 1. Stable findings of diverticulitis within the left colon. 2. No fluid collections of abscess are seen at this time. 3. Small bilateral pleural effusions and atelectasis within both lung bases which are an interval change from prior study most likely reactive from the patient's diverticulitis. Diagnostic code #3 I agree with preliminary report issued by [facility] ([facility] report finalized on 05/10/17, 2:29 PM Central Time)
--- NOTE | 2017-05-11 07:40 | CONS ---
CONSULTING PHYSICIAN: Ted Garcia DATE OF CONSULTATION: 05/10/2017 REQUESTING PHYSICIAN: Marcelle Lei, DO Thank you for asking me to see this nice lady in consultation. As you know, she has been hospitalized now since the , and on IV antibiotics for presumed diverticulitis. Her first CT scan showed some thickening and a little bit of haziness in the mid descending colon. In the interim, she has been on some clear liquids, which did not agree with her and Flagyl and clarithromycin. She last night began having some more pain after she dozed off, and repeat CT today does demonstrate diverticulitis in the descending colon with a small amount of air in the serosal area and in the lateral gutter. I do not see much in line of fluid. She does have marked tenderness on examination in the left flank and some mild tenderness in her suprapubic area. Bowel sounds are active. She has not had a bowel movement in 2 days and otherwise remains afebrile. Her white count has dropped from 13,000 down to 8000 today, but I think mainly by discontinuing her feedings and just putting her intestine to rest and probably upgrading the potency and spectrum of the antibiotics with something like Zosyn intravenously and continue to follow her. That usually should turn the trach here since her disease is quite limited. However, should she continue to have pain on this regimen over the next 48 hours or so, I would probably have her re-evaluated again by surgical consultation. IMPRESSION: At this point is acute diverticulitis with walled-off perforation. No abscess. I thank you for asking me see this nice patient in consultation. Her lungs and chest are clear and the remainder of the CT scan is pretty much unremarkable. MMODAL /[id number] [place]
[2017-05-11] MEDS ORDERED: Magnesium Oxide 400 MG Tab PO ONE ×2 (08:30→11:15)
--- NOTE | 2017-05-11 09:41 | PCM.CONSN ---
- General Info Date of Service: 05/11/17 - Patient Data Vitals - Most Recent: Last Vital Signs Temp 97.9 F 05/11/17 03:30 Pulse 62 05/11/17 03:30 Resp 16 05/11/17 03:30 BP 131/81 05/11/17 03:30 Pulse Ox 97 05/11/17 03:30 Weight - Most Recent: 69.4 kg I&O - Last 24 Hours: Intake & Output 05/10/17 05/11/17 05/11/17 23:59 07:59 15:59 Intake Total 2049 1200 Balance 2049 1200 Lab Results Last 24 Hours: Laboratory Results - last 24 hr 05/11/17 05/11/17 Range/Units 05:39 05:39 WBC 7.98 (3.98-10.04) K/mm3 RBC 4.08 (3.98-5.22) M/mm3 Hgb 10.5 L (11.2-15.7) gm/L Hct 32.5 L (34.1-44.9) % MCV 79.7 (79.4-94.8) fl MCH 25.7 (25.6-32.2) pg MCHC 32.3 (32.2-35.5) g/dl RDW Std Deviation 39.2 (36.4-46.3) fL Plt Count 255 (182-369) K/mm3 MPV 11.4 (9.4-12.3) fl Neut % (Auto) 73.4 H (34.0-71.1) % Lymph % (Auto) 15.3 L (19.3-51.7) % [place] % (Auto) 9.1 (4.7-12.5) % Eos % (Auto) 2.1 (0.7-5.8) Baso % (Auto) 0.1 (0.1-1.2) % Neut # (Auto) 5.85 (1.56-6.13) K/mm3 Lymph # (Auto) 1.22 (1.18-3.74) K/mm3 [place] # (Auto) 0.73 H (0.24-0.36) K/mm3 Eos # (Auto) 0.17 (0.04-0.36) K/mm3 Baso # (Auto) 0.01 (0.01-0.08) K/mm3 Sodium 143 (136-145) mEq/L Potassium 3.0 L (3.5-5.1) mEq/L Chloride 107 (98-107) mEq/L Carbon Dioxide 25 (21-32) mEq/L Anion Gap 14.0 (5-15) BUN 5 L (7-18) mg/dL Creatinine 0.5 L (0.55-1.02) mg/dL Est Cr Clr Drug Dosing 129.91 mL/min Estimated GFR (MDRD) > 60 (>60) mL/min BUN/Creatinine Ratio 10.0 L (14-18) Glucose 126 H (74-106) mg/dL Calcium 8.4 L (8.5-10.1) mg/dL Magnesium 1.7 L (1.8-2.4) mg/dl C-Reactive Protein 8.4 H* (<1.0) mg/dL Jorge Alberto Results Last 24 Hours: Microbiology 05/08/17 21:46 Stool Culture - Final Stool / Feces - Final - Final Med Orders - Current: Current Medications Acetaminophen (Tylenol) 650 mg PO Q6H PRN PRN Reason: Pain (Mild 1-3) Last Admin: 05/09/17 08:46 Dose: 650 mg Acetaminophen/Butalbital/Caffeine (Fioricet 325-50-40 Mg) 1 tab PO Q6H PRN PRN Reason: Headache Last Admin: 05/10/17 22:11 Dose: 1 tab Hydrocodone Bitart/Acetaminophen ([place] 325-5 Mg) 1 tab PO Q6H PRN PRN Reason: Pain Hydralazine HCl (Apresoline) 10 mg PO Q6H PRN PRN Reason: Hypertension Hydromorphone HCl (Dilaudid) 1 mg IVPUSH Q4H PRN PRN Reason: Pain Last Admin: 05/11/17 01:28 Dose: 1 mg Hyoscyamine (Hyomax-Sl) 0.125 mg SL Q6H PRN PRN Reason: Other Dextrose/Sodium Chloride (Dextrose 5%-1/2 Ns) 1,000 mls @ 100 mls/hr IV ASDIRECTED [facility] Last Admin: 05/11/17 01:40 Dose: 100 mls/hr Metronidazole 500 mg/ Premix 100 mls @ 100 mls/hr IV Q6H [facility] Last Admin: 05/11/17 03:22 Dose: 100 mls/hr Piperacillin Sod/Tazobactam (Sod 4.5 gm/ Sodium Chloride) 100 mls @ 25 mls/hr IV Q8H [facility] Last Admin: 05/11/17 06:30 Dose: 25 mls/hr Magnesium Sulfate (Pharmacy To Dose - Magnesium Replacement) 1 dose .XX ASDIRECTED PRN PRN Reason: RX to Dose Meperidine HCl (Demerol) 50 mg IVPUSH Q4H PRN PRN Reason: Pain Last Admin: 05/11/17 04:41 Dose: 50 mg Metoprolol Tartrate (Lopressor) 5 mg IVPUSH Q4H PRN PRN Reason: Tachycardia Ondansetron HCl (Zofran) 4 mg IV Q6H PRN PRN Reason: Nausea/Vomiting Last Admin: 05/11/17 04:54 Dose: 4 mg Ondansetron HCl (Zofran Odt) 4 mg PO Q4H PRN PRN Reason: Abdominal Cramping Last Admin: 05/10/17 09:01 Dose: 4 mg Pantoprazole Sodium (Protonix Iv) 40 mg IVPUSH BIDAC [facility] Last Admin: 05/11/17 06:30 Dose: 40 mg Potassium Chloride (Pharmacy To Dose - Potassium Replacement) 1 dose .XX ASDIRECTED PRN PRN Reason: RX to Dose Potassium Chloride (Klor-Con M20) 40 meq PO Q4H [facility] Stop: 05/11/17 12:31 Saccharomyces Boulardii (Florastor) 250 mg PO BID [facility] Last Admin: 05/10/17 22:15 Dose: Not Given Temazepam (Restoril) 15 mg PO BEDTIME PRN PRN Reason: Sleep Discontinued Medications Acetaminophen (Tylenol) 650 mg RECTAL Q4H PRN PRN Reason: Pain (mild 1-3) Clarithromycin (Biaxin) 500 mg PO BID [facility] Last Admin: 05/10/17 08:43 Dose: 500 mg Diatrizoate Meglum/Diatrizoate Sod (Gastrografin 37%) 90 ml PO ONETIME ONE Stop: 05/10/17 12:00 Last Admin: 05/10/17 12:52 Dose: 90 ml Dicyclomine HCl (Bentyl) 20 mg PO Q6H PRN PRN Reason: Abdominal cramps/diarrhea Last Admin: 05/08/17 15:26 Dose: 20 mg Diphenhydramine HCl (Benadryl) 25 mg IVPUSH ONETIME ONE Stop: 05/08/17 16:51 Last Admin: 05/08/17 16:56 Dose: 25 mg Enoxaparin Sodium (Lovenox) 40 mg SUBCUT DAILY [facility] Last Admin: 05/08/17 19:00 Dose: Not Given Famotidine (Pepcid) 20 mg PO BID [facility] Last Admin: 05/09/17 21:31 Dose: 20 mg Hydromorphone HCl (Dilaudid) 0.5 mg IVPUSH ONETIME ONE Stop: 05/08/17 10:23 Last Admin: 05/08/17 10:47 Dose: 0.5 mg Hydromorphone HCl (Dilaudid) 0.25 mg IVPUSH Q2H PRN PRN Reason: Pain (severe 7-10) Last Admin: 05/09/17 16:27 Dose: 0.25 mg Lactated Ringer's (Ringers, Lactated) 1,000 mls @ 150 mls/hr IV ASDIRECTED [facility] Last Admin: 05/08/17 10:43 Dose: 150 mls/hr Levofloxacin/Dextrose 500 mg/ (Premix) 100 mls @ 100 mls/hr IV Q24H [facility] Last Admin: 05/08/17 16:37 Dose: 100 mls/hr Levofloxacin/Dextrose 500 mg/ (Premix) 100 mls @ 100 mls/hr IV Q24H [facility] Last Admin: 05/09/17 08:48 Dose: 100 mls/hr Potassium Chloride 10 meq/ (Premix) 100 mls @ 100 mls/hr IV Q1H [facility] Stop: 05/09/17 16:59 Last Admin: 05/09/17 15:19 Dose: 100 mls/hr Dextrose/Sodium Chloride (Dextrose 5%-1/2 Ns) 1,000 mls @ 999 mls/hr IV ASDIRECTED [facility] Potassium Chloride 10 meq/ (Premix) 100 mls @ 100 mls/hr IV Q1H [facility] Stop: 05/10/17 17:59 Last Admin: 05/10/17 20:22 Dose: 100 mls/hr Piperacillin Sod/Tazobactam (Sod 3.375 gm/ Sodium Chloride) 100 mls @ 25 mls/ hr IV Q6H [facility] Last Admin: 05/10/17 15:07 Dose: Not Given Piperacillin Sod/Tazobactam (Sod 4.5 gm/ Sodium Chloride) 100 mls @ 200 mls/hr IV ONETIME ONE Stop: 05/10/17 15:29 Last Admin: 05/10/17 15:40 Dose: 200 mls/hr Iopamidol (Isovue-300 (61%)) 100 ml IVPUSH ONETIME ONE Stop: 05/10/17 12:00 Last Admin: 05/10/17 12:52 Dose: 100 ml Ketorolac Tromethamine (Toradol) 30 mg IV Q6H PRN PRN Reason: Pain (moderate 4-6) Last Admin: 05/10/17 01:46 Dose: 30 mg Magnesium Oxide (Magnesium Oxide) 400 mg PO ONETIME ONE Stop: 05/11/17 08:31 Magnesium Sulfate (Pharmacy To Dose - Magnesium Replacement) 1 dose .XX ASDIRECTED [facility] Ondansetron HCl (Zofran) 4 mg IVPUSH ONETIME ONE Stop: 05/08/17 10:23 Last Admin: 05/08/17 10:44 Dose: 4 mg Pantoprazole Sodium (Protonix) 40 mg PO BIDAC [facility] Last Admin: 05/10/17 06:47 Dose: 40 mg Potassium Chloride (Potassium Chloride) 60 meq PO ONETIME ONE Stop: 05/08/17 15:51 Last Admin: 05/08/17 17:06 Dose: Not Given Potassium Chloride (Klor-Con M20) 60 meq PO ONETIME ONE Stop: 05/08/17 17:18 Last Admin: 05/08/17 17:42 Dose: 60 meq Potassium Chloride (Pharmacy To Dose - Potassium Replacement) 1 dose .XX ASDIRECTED [facility] Potassium Chloride (Klor-Con M20) 40 meq PO Q4H [facility] Stop: 05/09/17 14:01 Last Admin: 05/09/17 10:03 Dose: 40 meq Sodium Chloride (Saline Flush) 10 ml FLUSH ONETIME ONE Stop: 05/10/17 12:00 Last Admin: 05/10/17 12:52 Dose: 10 ml Consult PN Assessment/Plan Procedures: Procedures ASSAY OF LIPASE (05/07/17) C-REACTIVE PROTEIN (05/07/17) COMPLETE CBC W/AUTO DIFF WBC (05/07/17) COMPREHEN METABOLIC PANEL (05/07/17) CT ABD & PELV W/CONTRAST (05/07/17) EMERGENCY DEPT VISIT (05/07/17) EMERGENCY DEPT VISIT (04/18/16) FLUOROSCOPE EXAMINATION (04/18/16) HELICOBACTER PYLORI ANTIBODY (05/07/17) HYDRATE IV INFUSION ADD-ON (05/07/17) IMMUNIZATION ADMIN (04/18/16) REMOVAL OF FOOT FOREIGN BODY (04/18/16) ROUTINE VENIPUNCTURE (05/07/17) TDAP VACCINE 7 YRS/> IM (04/18/16) THER/PROPH/DIAG IV INF ADDON (05/07/17) THER/PROPH/DIAG IV INF INIT (05/07/17) TX/PRO/DX INJ NEW DRUG ADDON (05/07/17) URINALYSIS AUTO W/SCOPE (05/07/17) X-RAY EXAM OF FOOT (04/18/16) Problem List Initiated/Reviewed/Updated: Yes My Orders Last 24 Hours: My Active Orders 05/11/17 09:27 Acetaminophen/HYDROcodone [[place] 325-5 MG] 1 tab PO Q6H PRN surgical consult dictated HANY
[2017-05-11] MEDS: Potassium Chloride 20 MEQ Tab.ER PO SCH ×2 (11:09→14:44)
--- NOTE | 2017-05-11 11:18 | PCM.PN ---
- General Info Date of Service: 05/11/17 Admission Dx/Problem (Free Text): Diverticulitis Hilary is seen this morning resting comfortably in bed. She remains NPO x ice chips. No nausea currently. She has complaints of substernal chest pain, across her entire chest and to her back; atypical as it is worse with movement such as sitting up. She had similar pain in the night and "after I had those pain medicines"- demerol and dilaudid both of which made her nauseous. She states "feels like constant pressure" and "heavy" on her chest wall. She is unable to state when exactly this started. Pain is not worse with deep breath/inspiration. She does not have headache, dizziness, palpitations. Abd pain is minimal at this time until my exam and palpation of abdomen. Dr. Harris did see her this morning also in consultation. Functional Status: Reports: Pain Controlled, Urinating. Denies: Tolerating Diet (NPO) - Review of Systems General: Denies: Fever Pulmonary: Reports: Pleuritic Chest Pain. Denies: Shortness of Breath, Cough Cardiovascular: Reports: Chest Pain. Denies: Palpitations, Dyspnea on Exertion , Edema, Lightheadedness Gastrointestinal: Reports: Abdominal Pain (with palpation; with resting quietly and not moving has no pain), Decreased Appetite. Denies: Diarrhea, Nausea ( resolved), Vomiting Genitourinary: Reports: No Symptoms Musculoskeletal: Reports: Neck Pain, Back Pain, Other (chest pain) Neurological: Reports: No Symptoms - Patient Data Vitals - Most Recent: Last Vital Signs Temp 97.9 F 05/11/17 03:30 Pulse 62 05/11/17 03:30 Resp 16 05/11/17 03:30 BP 131/81 05/11/17 03:30 Pulse Ox 97 05/11/17 03:30 Weight - Most Recent: 153 lb I&O - Last 24 Hours: Intake & Output 05/10/17 05/11/17 05/11/17 22:59 06:59 14:59 Intake Total 2049 1200 Balance 2049 1200 Lab Results Last 24 Hours: Laboratory Results - last 24 hr 05/11/17 05/11/17 Range/Units 05:39 05:39 WBC 7.98 (3.98-10.04) K/mm3 RBC 4.08 (3.98-5.22) M/mm3 Hgb 10.5 L (11.2-15.7) gm/L Hct 32.5 L (34.1-44.9) % MCV 79.7 (79.4-94.8) fl MCH 25.7 (25.6-32.2) pg MCHC 32.3 (32.2-35.5) g/dl RDW Std Deviation 39.2 (36.4-46.3) fL Plt Count 255 (182-369) K/mm3 MPV 11.4 (9.4-12.3) fl Neut % (Auto) 73.4 H (34.0-71.1) % Lymph % (Auto) 15.3 L (19.3-51.7) % [place] % (Auto) 9.1 (4.7-12.5) % Eos % (Auto) 2.1 (0.7-5.8) Baso % (Auto) 0.1 (0.1-1.2) % Neut # (Auto) 5.85 (1.56-6.13) K/mm3 Lymph # (Auto) 1.22 (1.18-3.74) K/mm3 [place] # (Auto) 0.73 H (0.24-0.36) K/mm3 Eos # (Auto) 0.17 (0.04-0.36) K/mm3 Baso # (Auto) 0.01 (0.01-0.08) K/mm3 Sodium 143 (136-145) mEq/L Potassium 3.0 L (3.5-5.1) mEq/L Chloride 107 (98-107) mEq/L Carbon Dioxide 25 (21-32) mEq/L Anion Gap 14.0 (5-15) BUN 5 L (7-18) mg/dL Creatinine 0.5 L (0.55-1.02) mg/dL Est Cr Clr Drug Dosing 129.91 mL/min Estimated GFR (MDRD) > 60 (>60) mL/min BUN/Creatinine Ratio 10.0 L (14-18) Glucose 126 H (74-106) mg/dL Calcium 8.4 L (8.5-10.1) mg/dL Magnesium 1.7 L (1.8-2.4) mg/dl C-Reactive Protein 8.4 H* (<1.0) mg/dL Jorge Alberto Results Last 24 Hours: Microbiology 05/08/17 21:46 Stool Culture - Final Stool / Feces - Final - Final Med Orders - Current: Current Medications Acetaminophen (Tylenol) 650 mg PO Q6H PRN PRN Reason: Pain (Mild 1-3) Last Admin: 05/09/17 08:46 Dose: 650 mg Acetaminophen/Butalbital/Caffeine (Fioricet 325-50-40 Mg) 1 tab PO Q6H PRN PRN Reason: Headache Last Admin: 05/10/17 22:11 Dose: 1 tab Hydrocodone Bitart/Acetaminophen ([place] 325-5 Mg) 1 tab PO Q6H PRN PRN Reason: Pain Hydralazine HCl (Apresoline) 10 mg PO Q6H PRN PRN Reason: Hypertension Hydromorphone HCl (Dilaudid) 1 mg IVPUSH Q4H PRN PRN Reason: Pain Last Admin: 05/11/17 01:28 Dose: 1 mg Hyoscyamine (Hyomax-Sl) 0.125 mg SL Q6H PRN PRN Reason: Other Dextrose/Sodium Chloride (Dextrose 5%-1/2 Ns) 1,000 mls @ 100 mls/hr IV ASDIRECTED [facility] Last Admin: 05/11/17 01:40 Dose: 100 mls/hr Metronidazole 500 mg/ Premix 100 mls @ 100 mls/hr IV Q6H [facility] Last Admin: 05/11/17 11:12 Dose: 100 mls/hr Piperacillin Sod/Tazobactam (Sod 4.5 gm/ Sodium Chloride) 100 mls @ 25 mls/hr IV Q8H [facility] Last Admin: 05/11/17 06:30 Dose: 25 mls/hr Magnesium Oxide (Magnesium Oxide) 400 mg PO ONETIME ONE Stop: 05/11/17 11:16 Last Admin: 05/11/17 11:09 Dose: 400 mg Magnesium Sulfate (Pharmacy To Dose - Magnesium Replacement) 1 dose .XX ASDIRECTED PRN PRN Reason: RX to Dose Metoprolol Tartrate (Lopressor) 5 mg IVPUSH Q4H PRN PRN Reason: Tachycardia Ondansetron HCl (Zofran) 4 mg IV Q6H PRN PRN Reason: Nausea/Vomiting Last Admin: 05/11/17 04:54 Dose: 4 mg Ondansetron HCl (Zofran Odt) 4 mg PO Q4H PRN PRN Reason: Abdominal Cramping Last Admin: 05/10/17 09:01 Dose: 4 mg Ondansetron HCl (Zofran Odt) 4 mg PO Q6H [facility] Pantoprazole S[facility] ([facility]tonix Iv) [facility] Last Admin: 05/11/17 06:30 Dose: 40 mg Potassium Chloride (Pharmacy To Dose - Potassium Replacement) 1 dose .XX ASDIRECTED PRN PRN Reason: RX to Dose Potassium Chloride (Klor-Con M20) 40 meq PO Q4H [facility] Stop: 05/11/17 12:31 Last Admin: 05/11/17 11:09 Dose: 40 meq Saccharomyces Boulardii (Florastor) 250 mg PO BID [facility] Last Admin: 05/10/17 22:15 Dose: Not Given Temazepam (Restoril) 15 mg PO BEDTIME PRN PRN Reason: Sleep Discontinued Medications Acetaminophen (Tylenol) 650 mg RECTAL Q4H PRN PRN Reason: Pain (mild 1-3) Clarithromycin (Biaxin) 500 mg PO BID [facility] Last Admin: 05/10/17 08:43 Dose: 500 mg Diatrizoate Meglum/Diatrizoate Sod (Gastrografin 37%) 90 ml PO ONETIME ONE Stop: 05/10/17 12:00 Last Admin: 05/10/17 12:52 Dose: 90 ml Dicyclomine HCl (Bentyl) 20 mg PO Q6H PRN PRN Reason: Abdominal cramps/diarrhea Last Admin: 05/08/17 15:26 Dose: 20 mg Diphenhydramine HCl (Benadryl) 25 mg IVPUSH ONETIME ONE Stop: 05/08/17 16:51 Last Admin: 05/08/17 16:56 Dose: 25 mg Enoxaparin Sodium (Lovenox) 40 mg SUBCUT DAILY [facility] Last Admin: 05/08/17 19:00 Dose: Not Given Famotidine (Pepcid) 20 mg PO BID [facility] Last Admin: 05/09/17 21:31 Dose: 20 mg Hydromorphone HCl (Dilaudid) 0.5 mg IVPUSH ONETIME ONE Stop: 05/08/17 10:23 Last Admin: 05/08/17 10:47 Dose: 0.5 mg Hydromorphone HCl (Dilaudid) 0.25 mg IVPUSH Q2H PRN PRN Reason: Pain (severe 7-10) Last Admin: 05/09/17 16:27 Dose: 0.25 mg Lactated Ringer's (Ringers, Lactated) 1,000 mls @ 150 mls/hr IV ASDIRECTED [facility] Last Admin: 05/08/17 10:43 Dose: 150 mls/hr Levofloxacin/Dextrose 500 mg/ (Premix) 100 mls @ 100 mls/hr IV Q24H [facility] Last Admin: 05/08/17 16:37 Dose: 100 mls/hr Levofloxacin/Dextrose 500 mg/ (Premix) 100 mls @ 100 mls/hr IV Q24H [facility] Last Admin: 05/09/17 08:48 Dose: 100 mls/hr Potassium Chloride 10 meq/ (Premix) 100 mls @ 100 mls/hr IV Q1H [facility] Stop: 05/09/17 16:59 Last Admin: 05/09/17 15:19 Dose: 100 mls/hr Dextrose/Sodium Chloride (Dextrose 5%-1/2 Ns) 1,000 mls @ 999 mls/hr IV ASDIRECTED [facility] Potassium Chloride 10 meq/ (Premix) 100 mls @ 100 mls/hr IV Q1H [facility] Stop: 05/10/17 17:59 Last Admin: 05/10/17 20:22 Dose: 100 mls/hr Piperacillin Sod/Tazobactam (Sod 3.375 gm/ Sodium Chloride) 100 mls @ 25 mls/ hr IV Q6H [facility] Last Admin: 05/10/17 15:07 Dose: Not Given Piperacillin Sod/Tazobactam (Sod 4.5 gm/ Sodium Chloride) 100 mls @ 200 mls/hr IV ONETIME ONE Stop: 05/10/17 15:29 Last Admin: 05/10/17 15:40 Dose: 200 mls/hr Iopamidol (Isovue-300 (61%)) 100 ml IVPUSH ONETIME ONE Stop: 05/10/17 12:00 Last Admin: 05/10/17 12:52 Dose: 100 ml Ketorolac Tromethamine (Toradol) 30 mg IV Q6H PRN PRN Reason: Pain (moderate 4-6) Last Admin: 05/10/17 01:46 Dose: 30 mg Magnesium Sulfate (Pharmacy To Dose - Magnesium Replacement) 1 dose .XX ASDIRECTED [facility] Meperidine HCl (Demerol) 50 mg IVPUSH Q4H PRN PRN Reason: Pain Last Admin: 05/11/17 04:41 Dose: 50 mg Ondansetron HCl (Zofran) 4 mg IVPUSH ONETIME ONE Stop: 05/08/17 10:23 Last Admin: 05/08/17 10:44 Dose: 4 mg Pantoprazole Sodium (Protonix) 40 mg PO BIDAC [facility] Last Admin: 05/10/17 06:47 Dose: 40 mg Potassium Chloride (Potassium Chloride) 60 meq PO ONETIME ONE Stop: 05/08/17 15:51 Last Admin: 05/08/17 17:06 Dose: Not Given Potassium Chloride (Klor-Con M20) 60 meq PO ONETIME ONE Stop: 05/08/17 17:18 Last Admin: 05/08/17 17:42 Dose: 60 meq Potassium Chloride (Pharmacy To Dose - Potassium Replacement) 1 dose .XX ASDIRECTED [facility] Potassium Chloride (Klor-Con M20) 40 meq PO Q4H [facility] Stop: 05/09/17 14:01 Last Admin: 05/09/17 10:03 Dose: 40 meq Sodium Chloride (Saline Flush) 10 ml FLUSH ONETIME ONE Stop: 05/10/17 12:00 Last Admin: 05/10/17 12:52 Dose: 10 ml - Exam Quality Assessment: DVT Prophylaxis General: Alert, Oriented, Cooperative, No Acute Distress HEENT: Pupils Equal, EOMI, Mucous Membr. Moist/[place] Neck: Supple Lungs: Clear to Auscultation, Normal Respiratory Effort, Decreased Breath Sounds (bases) Cardiovascular: Regular Rate, Regular Rhythm, No Murmurs GI/Abdominal Exam: Normal Bowel Sounds, Soft, No Organomegaly, No Distention, No Mass, Tender (diffusely, more to upper and mid abdomen). No: Guarding, Rigid , Rebound (Female) Exam: Deferred Back Exam: Normal Inspection, Other (tenderness to upper back/neck with palpation, musculoskeletal in nature). No: CVA Tenderness (R), Decreased Range of Motion Extremities: Normal Inspection, No Pedal Edema, Normal Capillary Refill, Other ( palpation of chest wall is with tenderness and worsens "chest pain") Peripheral Pulses: 2+: Radial (L), Radial (R), Dorsalis Pedis (L), Dorsalis Pedis (R) Neurological: No New Focal Deficit, Normal Speech, Normal Tone Psy/Mental Status: Alert, Normal Affect, Normal Mood - Problem List & Annotations (1) Diverticulitis SNOMED Code(s): 446989509 Code(s): K57.92 - DVTRCLI OF INTEST, PART UNSP, W/O PERF OR ABSCESS W/O BLEED Status: Acute Priority: High Current Visit: Yes Qualifiers: Diverticulitis site: large intestine Diverticulitis bleeding: without bleeding Diverticulitis complication: without perforation or abscess Qualified Code(s): K57.32 - Diverticulitis of large intestine without perforation or abscess without bleeding (2) Positive H. pylori test SNOMED Code(s): 756825260 Code(s): A04.8 - OTHER SPECIFIED BACTERIAL INTESTINAL INFECTIONS Status: Acute Priority: High Current Visit: Yes (3) Atypical chest pain SNOMED Code(s): 091017995 Code(s): R07.89 - OTHER CHEST PAIN Status: Acute Priority: High Current Visit: Yes (4) Hypokalemia SNOMED Code(s): 66027757 Code(s): E87.6 - HYPOKALEMIA Status: Acute Priority: High Current Visit : Yes (5) Epigastric abdominal pain SNOMED Code(s): 69453375 Code(s): R10.13 - EPIGASTRIC PAIN Status: Acute Priority: Medium Current Visit: Yes (6) Headache SNOMED Code(s): 30778875 Code(s): R51 - HEADACHE Status: Resolved Priority: Low Current Visit: Yes Qualifiers: Headache type: tension-type Headache chronicity pattern: acute headache Intractability: not intractable Qualified Code(s): G44.209 - Tension-type headache, unspecified, not intractable - Problem List Review Problem List Initiated/Reviewed/Updated: Yes - My Orders Last 24 Hours: My Active Orders 05/11/17 11:08 EKG Documentation Completion [RC] ROUTINE RT Incentive Spirometry [RC] Q2HWA Turn, Cough, Deep Breathe [RC] Q2HWA Chest 2V [CR] Routine TROPONIN I [CHEM] Routine Heat Therapy [OM.PC] Routine 05/11/17 11:15 Ondansetron [Zofran ODT] 4 mg PO Q6H - Plan Plan:: Impression/Plan: Acute: Diverticulitis of Large Intestine - LLQ abdominal pain - In ED on 05/07/17 and 05/08/17 with symptoms; ;Discharged from ED on Cipro 500mg BID, Flagyl 500 mg TID, Ultram 50 mg Q6 PRN, and Bntyl 20 mg Q6 PRN on - No known history of diverticulosis - CT scan abdomen and pelvis with contrast on 05/07/17 1. Left-sided inflammatory change, most likely representing diverticulitis within the left colon. No abscess seen at this time 2. Mild increased stool within the colon and other incidental findings Repeat CT scan with contrast done yesterday with evidence of microperforation, no abscess- see report. - CRP increasin.70 --> 19.20 --> 24.20 --> 16.7 (improving) - WBC improved: 13.84 --> 10.58 --> 08.35 (resolved) - UA negative - Prior tubal ligation -- no other abdominal surgeries - Resume NPO with medications and sips of water - Continue IV Flagyl 500 mg TID, Zosyn, and Probiotic - Encourage to Ambulate QID as tolerated - Pain medications -- per Dr. Harris recommendations; try [place], DC dilaudid and demerol - Intermittent nausea- will schedule zofran Q6hrs - Will recommend outpatient colonoscopy after discharge with Dr. Harris Epigastric Abdominal Pain - Liver/Lipase enzymes are normal - Serum and Stool Cx H. Pylori positive - Continue PRN Levsin for Abdominal Cramps and PPI; schedule zofran as above - Antibiotics prescribed as above - GS consult with Dr. Garcia for further eval; now Dr. Harris to take over for General Surgery, he is consulted this morning and did see and evaluatie patient - IV/Oral Abdomen/Pelvis CT scan to r/o micro-perforation obtained yesterday - results as above - Will recommend possible EGD for definitive diagnosis if symptoms persist after discharge with Dr. Harris Helicobacter Pylori Infection--as above - + via stool study Mild Hypokalemia - K 3.1 --> 3.4-->3.0 - 2/2 GI Loss, NPO status - Pharmacy to replete - Follow am labs Mild Hypomagnesemia - 1.7 -Pharmacy to replete -Follow am labs Atypical chest pain -Will evaluate, r/o cardiac -Orders placed for EKG, troponin, CXR Resolved: Headache - Pain medications as indicated Chronic: Hx/o tubal ligation Plan: She remains clinically stable Continue treatment Routine AM Labs Resume NPO status except sips of water and ice chips--unless otherwise directed by Dr. Harris DVT/PE prophylaxis - ambulation and GARCIA ramey GI prophylaxis - PPI BID Consulted General Surgery for further input Additional orders as above Establish with a primary care provider for outpatient follow-up CM/SW for discharge planning Code Status: Full Code.
--- NOTE | 2017-05-11 11:48 | CR ---
Chest: Two views of the chest were obtained. Comparison: No previous chest x-rays available. Blunting of the posterior costophrenic angles are seen likely representing minimal pleural effusions. Slight atelectasis is noted within the left lung base. Lungs otherwise are clear. Heart size and mediastinum are normal. Bony structures are unremarkable. Impression: 1. Slight atelectasis within the left lung base. 2. Minimal pleural effusions are suggested. Diagnostic code #2
[2017-05-11] MEDS: Acetaminophen/HYDROcodone 325-5 MG Tab PO PRN (12:38)
[2017-05-11] MEDS: Ondansetron 4 MG Tab.DIS PO SCH ×3 (12:38→22:31)
[2017-05-11] MEDS ORDERED: Potassium Chloride 20 MEQ Tab.ER PO ONE (14:45)
[2017-05-11] MEDS: Sucralfate Suspension 1 GM/10 ML Cup PO SCH ×2 (17:39→22:31)
[2017-05-11] MEDS ORDERED: diphenhydrAMINE 50 MG Cap PO ONE (19:29)
[2017-05-11] MEDS: diphenhydrAMINE 25 MG Cap PO SCH (20:10)
[2017-05-11] MEDS ORDERED: methylPREDNISolone Sodium Succinate 40 MG/1 ML SDV IVPUSH ONE (22:17)
[2017-05-12] MEDS: Acetaminophen/HYDROcodone 325-5 MG Tab PO PRN ×2 (00:52→11:52)
[2017-05-12] MEDS: diphenhydrAMINE 25 MG Cap PO SCH ×4 (00:52→19:10)
[2017-05-12] MEDS: metroNIDAZOLE/Normal Saline 500 MG in Premix Bag 1 BAG IV SCH ×2 (05:36→09:16)
[2017-05-12] MEDS: Pantoprazole 40 MG Vial IVPUSH SCH (05:37)
[2017-05-12] MEDS: Sucralfate Suspension 1 GM/10 ML Cup PO SCH ×3 (05:37→16:47)
[2017-05-12] MEDS: Ondansetron 4 MG Tab.DIS PO SCH ×2 (05:37→11:49)
[2017-05-12] MEDS: Piperacillin/Tazobactam 4.5 GM in Sodium Chloride 0.9% 100 ML IV SCH (06:43)
--- NOTE | 2017-05-12 07:53 | PCM.PN ---
- General Info Date of Service: 05/12/17 Admission Dx/Problem (Free Text): Diverticulitis Subjective Update: Follow Up Functional Status: Reports: Pain Controlled, Ambulating, Urinating, New Symptoms (back pain an rash ) - Review of Systems General: Denies: Fever, Weakness, Fatigue, Malaise, Chills HEENT: Reports: No Symptoms Pulmonary: Denies: Shortness of Breath Cardiovascular: Reports: No Symptoms Gastrointestinal: Reports: Abdominal Pain, Flatus. Denies: Decreased Appetite, Diarrhea, Difficulty Swallowing, Nausea, Vomiting Genitourinary: Reports: No Symptoms Musculoskeletal: Reports: Back Pain Skin: Reports: Rash (right groin area) Neurological: Denies: Confusion, Difficulty Walking, Weakness, Gait Disturbance Psychiatric: Denies: Depression, Mood Lability, Hallucinations Systems Review Comment:: No significant overnight. She complaints of back pain and groin rash this am. Her abdominal pain is better. She is no longer nauseous. Her labs continues to improve. - Patient Data Vitals - Most Recent: Last Vital Signs Temp 36.6 C 05/12/17 03:49 Pulse 64 05/12/17 03:49 Resp 16 05/12/17 03:49 BP 125/78 05/12/17 03:49 Pulse Ox 93 L 05/12/17 03:49 Weight - Most Recent: 69.127 kg I&O - Last 24 Hours: Intake & Output 05/11/17 05/12/17 05/12/17 22:59 06:59 14:59 Intake Total 1680 1565 Balance 1680 1565 Lab Results Last 24 Hours: Laboratory Results - last 24 hr 05/11/17 05/12/17 05/12/17 Range/Units 11:35 05:55 05:55 WBC 6.20 (3.98-10.04) K/mm3 RBC 4.51 (3.98-5.22) M/mm3 Hgb 11.7 (11.2-15.7) gm/L Hct 35.6 (34.1-44.9) % MCV 78.9 L (79.4-94.8) fl MCH 25.9 (25.6-32.2) pg MCHC 32.9 (32.2-35.5) g/dl RDW Std Deviation 39.0 (36.4-46.3) fL Plt Count 320 (182-369) K/mm3 MPV 11.7 (9.4-12.3) fl Neut % (Auto) 87.6 H (34.0-71.1) % Lymph % (Auto) 9.8 L (19.3-51.7) % [place] % (Auto) 2.1 L (4.7-12.5) % Eos % (Auto) 0 L (0.7-5.8) Baso % (Auto) 0.2 (0.1-1.2) % Neut # (Auto) 5.43 (1.56-6.13) K/mm3 Lymph # (Auto) 0.61 L (1.18-3.74) K/mm3 [place] # (Auto) 0.13 L (0.24-0.36) K/mm3 Eos # (Auto) 0.00 L (0.04-0.36) K/mm3 Baso # (Auto) 0.01 (0.01-0.08) K/mm3 Sodium 142 (136-145) mEq/L Potassium 3.8 (3.5-5.1) mEq/L Chloride 106 (98-107) mEq/L Carbon Dioxide 25 (21-32) mEq/L Anion Gap 14.8 (5-15) BUN 4 L (7-18) mg/dL Creatinine 0.6 (0.55-1.02) mg/dL Est Cr Clr Drug Dosing 108.26 mL/min Estimated GFR (MDRD) > 60 (>60) mL/min BUN/Creatinine Ratio 6.7 L (14-18) Glucose 166 H (74-106) mg/dL Calcium 9.2 (8.5-10.1) mg/dL Magnesium 1.9 (1.8-2.4) mg/dl Troponin I < 0.017 (0.00-0.056) ng/mL C-Reactive Protein 5.1 H* (<1.0) mg/dL Jorge Alberto Results Last 24 Hours: Microbiology 05/08/17 21:46 Stool Culture - Final Stool / Feces - Final - Final Med Orders - Current: Current Medications Acetaminophen (Tylenol) 650 mg PO Q6H PRN PRN Reason: Pain (Mild 1-3) Last Admin: 05/09/17 08:46 Dose: 650 mg Acetaminophen/Butalbital/Caffeine (Fioricet 325-50-40 Mg) 1 tab PO Q6H PRN PRN Reason: Headache Last Admin: 05/10/17 22:11 Dose: 1 tab Hydrocodone Bitart/Acetaminophen ([place] 325-5 Mg) 1 tab PO Q6H PRN PRN Reason: Pain Last Admin: 05/12/17 00:52 Dose: 1 tab Diphenhydramine HCl (Benadryl) 25 mg PO Q6H NETTE Last Admin: 05/12/17 06:44 Dose: 25 mg Hydralazine HCl (Apresoline) 10 mg PO Q6H PRN PRN Reason: Hypertension Hydromorphone HCl (Dilaudid) 1 mg IVPUSH Q4H PRN PRN Reason: Pain Last Admin: 05/11/17 14:34 Dose: 1 mg Hyoscyamine (Hyomax-Sl) 0.125 mg SL Q6H PRN PRN Reason: Other Dextrose/Sodium Chloride (Dextrose 5%-1/2 Ns) 1,000 mls @ 100 mls/hr IV ASDIRECTED NETTE Last Admin: 05/11/17 22:30 Dose: 100 mls/hr Metronidazole 500 mg/ Premix 100 mls @ 100 mls/hr IV Q6H ON LICENSE OF [facility] Last Admin: 05/12/17 05:36 Dose: 100 mls/hr Piperacillin Sod/Tazobactam (Sod 4.5 gm/ Sodium Chloride) 100 mls @ 25 mls/hr IV Q8H ON LICENSE OF [facility] Last Admin: 05/12/17 06:43 Dose: 25 mls/hr Magnesium Sulfate (Pharmacy To Dose - Magnesium Replacement) 1 dose .XX ASDIRECTED PRN PRN Reason: RX to Dose Metoprolol Tartrate (Lopressor) 5 mg IVPUSH Q4H PRN PRN Reason: Tachycardia Ondansetron HCl (Zofran) 4 mg IV Q6H PRN PRN Reason: Nausea/Vomiting Last Admin: 05/11/17 04:54 Dose: 4 mg Ondansetron HCl (Zofran Odt) 4 mg PO Q4H PRN PRN Reason: Abdominal Cramping Last Admin: 05/10/17 09:01 Dose: 4 mg Ondansetron HCl (Zofran Odt) 4 mg PO Q6H NETTE Last Admin: 05/12/17 05:37 Dose: 4 mg [facility]oprazole [facility] Iv) [facility] Last Admin: 05/12/17 05:37 Dose: 40 mg Potassium Chloride (Pharmacy To Dose - Potassium Replacement) 1 dose .XX ASDIRECTED PRN PRN Reason: RX to Dose Saccharomyces Boulardii (Florastor) 250 mg PO BID ON LICENSE OF [facility] Last Admin: 05/10/17 22:15 Dose: Not Given Sucralfate (Carafate) 1 gm PO Q6H ON LICENSE OF [facility] Last Admin: 05/12/17 05:37 Dose: 1 gm Temazepam (Restoril) 15 mg PO BEDTIME PRN PRN Reason: Sleep Discontinued Medications Acetaminophen (Tylenol) 650 mg RECTAL Q4H PRN PRN Reason: Pain (mild 1-3) Clarithromycin (Biaxin) 500 mg PO BID ON LICENSE OF [facility] Last Admin: 05/10/17 08:43 Dose: 500 mg Diatrizoate Meglum/Diatrizoate Sod (Gastrografin 37%) 90 ml PO ONETIME ONE Stop: 05/10/17 12:00 Last Admin: 05/10/17 12:52 Dose: 90 ml Dicyclomine HCl (Bentyl) 20 mg PO Q6H PRN PRN Reason: Abdominal cramps/diarrhea Last Admin: 05/08/17 15:26 Dose: 20 mg Diphenhydramine HCl (Benadryl) 25 mg IVPUSH ONETIME ONE Stop: 05/08/17 16:51 Last Admin: 05/08/17 16:56 Dose: 25 mg Diphenhydramine HCl (Benadryl) 50 mg PO ONETIME ONE Stop: 05/11/17 19:30 Last Admin: 05/11/17 20:32 Dose: 50 mg Enoxaparin Sodium (Lovenox) 40 mg SUBCUT DAILY ON LICENSE OF [facility] Last Admin: 05/08/17 19:00 Dose: Not Given Famotidine (Pepcid) 20 mg PO BID ON LICENSE OF [facility] Last Admin: 05/09/17 21:31 Dose: 20 mg Hydromorphone HCl (Dilaudid) 0.5 mg IVPUSH ONETIME ONE Stop: 05/08/17 10:23 Last Admin: 05/08/17 10:47 Dose: 0.5 mg Hydromorphone HCl (Dilaudid) 0.25 mg IVPUSH Q2H PRN PRN Reason: Pain (severe 7-10) Last Admin: 05/09/17 16:27 Dose: 0.25 mg Lactated Ringer's (Ringers, Lactated) 1,000 mls @ 150 mls/hr IV ASDIRECTED ON LICENSE OF [facility] Last Admin: 05/08/17 10:43 Dose: 150 mls/hr Levofloxacin/Dextrose 500 mg/ (Premix) 100 mls @ 100 mls/hr IV Q24H ON LICENSE OF [facility] Last Admin: 05/08/17 16:37 Dose: 100 mls/hr Levofloxacin/Dextrose 500 mg/ (Premix) 100 mls @ 100 mls/hr IV Q24H ON LICENSE OF [facility] Last Admin: 05/09/17 08:48 Dose: 100 mls/hr Potassium Chloride 10 meq/ (Premix) 100 mls @ 100 mls/hr IV Q1H ON LICENSE OF [facility] Stop: 05/09/17 16:59 Last Admin: 05/09/17 15:19 Dose: 100 mls/hr Dextrose/Sodium Chloride (Dextrose 5%-1/2 Ns) 1,000 mls @ 999 mls/hr IV ASDIRECTED ON LICENSE OF [facility] Potassium Chloride 10 meq/ (Premix) 100 mls @ 100 mls/hr IV Q1H ON LICENSE OF [facility] Stop: 05/10/17 17:59 Last Admin: 05/10/17 20:22 Dose: 100 mls/hr Piperacillin Sod/Tazobactam (Sod 3.375 gm/ Sodium Chloride) 100 mls @ 25 mls/ hr IV Q6H ON LICENSE OF [facility] Last Admin: 05/10/17 15:07 Dose: Not Given Piperacillin Sod/Tazobactam (Sod 4.5 gm/ Sodium Chloride) 100 mls @ 200 mls/hr IV ONETIME ONE Stop: 05/10/17 15:29 Last Admin: 05/10/17 15:40 Dose: 200 mls/hr Iopamidol (Isovue-300 (61%)) 100 ml IVPUSH ONETIME ONE Stop: 05/10/17 12:00 Last Admin: 05/10/17 12:52 Dose: 100 ml Ketorolac Tromethamine (Toradol) 30 mg IV Q6H PRN PRN Reason: Pain (moderate 4-6) Last Admin: 05/10/17 01:46 Dose: 30 mg Magnesium Oxide (Magnesium Oxide) 400 mg PO ONETIME ONE Stop: 05/11/17 11:16 Last Admin: 05/11/17 11:09 Dose: 400 mg Magnesium Sulfate (Pharmacy To Dose - Magnesium Replacement) 1 dose .XX ASDIRECTED ON LICENSE OF [facility] Meperidine HCl (Demerol) 50 mg IVPUSH Q4H PRN PRN Reason: Pain Last Admin: 05/11/17 04:41 Dose: 50 mg Methylprednisolone Sodium Succinate (Solu-Medrol) 40 mg IVPUSH ONETIME ONE Stop: 05/11/17 22:18 Last Admin: 05/11/17 22:31 Dose: 40 mg Ondansetron HCl (Zofran) 4 mg IVPUSH ONETIME ONE Stop: 05/08/17 10:23 Last Admin: 05/08/17 10:44 Dose: 4 mg Pantoprazole Sodium (Protonix) 40 mg PO BIDAC ON LICENSE OF [facility] Last Admin: 05/10/17 06:47 Dose: 40 mg Potassium Chloride (Potassium Chloride) 60 meq PO ONETIME ONE Stop: 05/08/17 15:51 Last Admin: 05/08/17 17:06 Dose: Not Given Potassium Chloride (Klor-Con M20) 60 meq PO ONETIME ONE Stop: 05/08/17 17:18 Last Admin: 05/08/17 17:42 Dose: 60 meq Potassium Chloride (Pharmacy To Dose - Potassium Replacement) 1 dose .XX ASDIRECTED ON LICENSE OF [facility] Potassium Chloride (Klor-Con M20) 40 meq PO Q4H ON LICENSE OF [facility] Stop: 05/09/17 14:01 Last Admin: 05/09/17 10:03 Dose: 40 meq Potassium Chloride (Klor-Con M20) 40 meq PO Q4H ON LICENSE OF [facility] Stop: 05/11/17 12:31 Last Admin: 05/11/17 14:44 Dose: 40 meq Potassium Chloride (Klor-Con M20) 40 meq PO ONETIME ONE Stop: 05/11/17 14:46 Last Admin: 05/11/17 14:45 Dose: Not Given Sodium Chloride (Saline Flush) 10 ml FLUSH ONETIME ONE Stop: 05/10/17 12:00 Last Admin: 05/10/17 12:52 Dose: 10 ml - Exam General: Alert, Oriented, Cooperative, No Acute Distress HEENT: Pupils Equal, Pupils Reactive, EOMI, Mucous Membr. Moist/[place] Neck: Supple, Trachea Midline, No JVD Lungs: Clear to Auscultation, Normal Respiratory Effort Cardiovascular: Regular Rate, Regular Rhythm GI/Abdominal Exam: Normal Bowel Sounds, Soft, No Organomegaly, No Distention, No Abnormal Bruit, No Mass, Pelvis Stable, Tender (Female) Exam: Deferred Back Exam: Normal Inspection, Full Range of Motion Extremities: Normal Inspection, Normal Range of Motion, Non-Tender, No Pedal Edema, Normal Capillary Refill Peripheral Pulses: 3+: Posterior Tibial (L), Posterior Tibial (R), Dorsalis Pedis (L), Dorsalis Pedis (R) Skin: Warm, Dry, Intact Neurological: No New Focal Deficit Psy/Mental Status: Alert, Normal Affect, Normal Mood - Problem List Review Problem List Initiated/Reviewed/Updated: Yes - My Orders Last 24 Hours: My Active Orders 05/11/17 09:10 Consult to Physician [CONS] Routine 05/11/17 09:11 Notify Provider Consults [RC] ASDIRECTED - Plan Plan:: Impression/Plan: Acute: Diverticulitis of Large Intestine, Improving - LLQ abdominal pain - In ED on 05/07/17 and 05/08/17 with symptoms; ;Discharged from ED on Cipro 500mg BID, Flagyl 500 mg TID, Ultram 50 mg Q6 PRN, and Bntyl 20 mg Q6 PRN on 05/07/17 - No known history of diverticulosis - CT scan abdomen and pelvis with contrast on 05/07/17 1. Left-sided inflammatory change, most likely representing diverticulitis within the left colon. No abscess seen at this time 2. Mild increased stool within the colon and other incidental findings Repeat CT scan with contrast done yesterday with evidence of microperforation, no abscess- see report - CRP increasin.70 --> 5.1, continues to improve - WBC improved: 13.84 --> 6.20 (resolved) - UA negative - Prior tubal ligation-- no other abdominal surgeries - PO as per GS - Continue current ATB: Flagyl 500 mg TID, Zosyn, and Probiotic - Encourage to Ambulate QID as tolerated - Pain medication with [place] per Dr. Harris's recommendation - Recommend outpatient colonoscopy after discharge with Dr. Harris Epigastric Abdominal Pain, Improved - Liver/Lipase enzymes are normal - Serum and Stool Cx H. Pylori positive - Continue PRN Levsin/Zofran for Abdominal Cramps and PPI - Antibiotics prescribed as above - GS consulted with Dr. Garcia for further eval; Dr. Harris now is covering for surgical care - Will recommend possible EGD for definitive diagnosis if symptoms persist after discharge with Dr. Harris Helicobacter Pylori Infection - Treatment as above - + via stool study Back Pain - Pos for bilateral CVA test - Suspect MSK Pain/Spasm - UA to r/o UTI Skin Rash - Right Groin Region - Unlikely hypersensitivity from current antibiotics - Received Steroids and H2B - Will monitor Resolved: Headache - Pain medications as indicated Mild Hypokalemia - K is now 3.8 - 2/2 GI Loss, NPO status Mild Hypomagnesemia - Mg is now 1.9 - 2/2 GI Loss, NPO status Atypical Chest Pain - Basic cardiac work up: all negative - Likely referred pain Chronic: Hx/o tubal ligation Plan: She remains clinically stable Continue treatment Routine AM Labs PO status as per General Surgery; hopefully she can start some form of a diet today DVT/PE prophylaxis-ambulation and GARCIA tanvir GI prophylaxis-PPI BID General Surgery following Additional orders as above Establish with a primary care provider for outpatient follow-up CM/SW for discharge planning Code Status: Full Code LOS > 96 hrs due to slow response to treatment
[2017-05-12] MEDS ORDERED: Piperacillin/Tazobactam 4.5 GM in Dextrose 5% in Water 100 ML IV SCH ×2 (08:32)
[2017-05-12] MEDS: Dextrose 5%-0.45% NaCl 1,000 ML IV SCH ×2 (09:15→19:10)
[2017-05-12] MEDS: HYDROmorphone 1 MG/ML Syringe IVPUSH PRN (09:36)
--- NOTE | 2017-05-12 10:06 | CONS ---
CONSULTING PHYSICIAN: John Harris MD DATE OF CONSULTATION: 05/11/2017 HISTORY OF PRESENT ILLNESS: This is a 37-year-old who came into the emergency room with pain in the right lower quadrant. She initially came in earlier that day on Thursday where she was diagnosed with diverticulitis based on elevated white count of 14,000, and a CT scan showing inflammation in the right pericolic area in the presence of diverticulum. She was started on Flagyl, tramadol, and Cipro. The patient returned that day with worsening pain and was admitted to the hospital. She states that this pain began on Thursday of that week. She has been in the hospital on metronidazole and Zosyn, and the white count has come down to normal range along with her vital signs remained stable. She has continued to have nausea and complained of pain in the right upper quadrant, but the CT scan that was done on the shows a little fluid in the lungs, but resolution of the inflammation in the right lower quadrant. The patient has not been able to eat and has been mainly complaining of nausea. The patient by all parameters appears to be improving. PAST MEDICAL HISTORY: Her past medical history is that of having an H pylori, having pregnancies in the past, and reports diverticulosis in the past. PAST SURGICAL HISTORY: Tubal ligation. 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 Never smoked and is from [facility]. Does use some coffee. No recreational drugs. ALLERGIES: No known allergies. MEDICATIONS: Per medication reconciliation form. REVIEW OF SYSTEMS: No chest pain, shortness of breath, cough, hoarseness, wheezing, fainting, weakness, numbness, or convulsions. Does have some nausea, crampy abdominal pain, pain in the right lower quadrant. No diarrhea or vomiting blood. No epigastric pain or dyspepsia. PHYSICAL EXAMINATION: VITAL SIGNS: Temperature 98, pulse 80s, blood pressure 137/80. HEENT: Eyes; sclerae white. Extraocular muscle motion normal. Oral cavity, healthy mucous membranes. NECK: Supple. No nodes. No thyromegaly. LUNGS: Clear. No rales, rhonchi, fremitus, dullness. HEART: Tones regular rate. No S3, S4, jugular venous distention. ABDOMEN: No distention. No peritoneal signs. Tenderness to deep palpation in the left lower quadrant and suprapubic area. EXTREMITIES: Upper and lower extremities, no angulation deformities. NEUROLOGIC: Normal. No sensorineural deficit. Cranial nerves 3 through 12 intact. SKIN: Warm and dry. MENTAL STATUS EXAM: Alert and cooperative. ASSESSMENT: Diverticulitis, improving, history of migraines, history of Helicobacter pylori. PLAN: Continue the antibiotics. We will change to an oral pain medication and suspect the Flagyl is causing her nausea. MMODAL /[id number]
[2017-05-12] MEDS ORDERED: Sodium Chloride 0.9% 10 ML Syringe FLUSH PRN (14:29)
--- NOTE | 2017-05-12 14:34 | PCM.PN ---
- General Info Date of Service: 05/12/17 Functional Status: Reports: Pain Controlled - Review of Systems General: Reports: No Symptoms HEENT: Reports: No Symptoms Pulmonary: Reports: No Symptoms Cardiovascular: Reports: No Symptoms Gastrointestinal: Reports: Nausea - Patient Data Vitals - Most Recent: Last Vital Signs Temp 98.4 F 05/12/17 11:55 Pulse 59 L 05/12/17 11:55 Resp 18 05/12/17 11:55 BP 147/94 H 05/12/17 11:55 Pulse Ox 96 05/12/17 11:55 Weight - Most Recent: 69.127 kg I&O - Last 24 Hours: Intake & Output 05/11/17 05/12/17 05/12/17 23:59 07:59 15:59 Intake Total 1680 1565 Balance 1680 1565 Lab Results Last 24 Hours: Laboratory Results - last 24 hr 05/12/17 05/12/17 Range/Units 05:55 05:55 WBC 6.20 (3.98-10.04) K/mm3 RBC 4.51 (3.98-5.22) M/mm3 Hgb 11.7 (11.2-15.7) gm/L Hct 35.6 (34.1-44.9) % MCV 78.9 L (79.4-94.8) fl MCH 25.9 (25.6-32.2) pg MCHC 32.9 (32.2-35.5) g/dl RDW Std Deviation 39.0 (36.4-46.3) fL Plt Count 320 (182-369) K/mm3 MPV 11.7 (9.4-12.3) fl Neut % (Auto) 87.6 H (34.0-71.1) % Lymph % (Auto) 9.8 L (19.3-51.7) % [place] % (Auto) 2.1 L (4.7-12.5) % Eos % (Auto) 0 L (0.7-5.8) Baso % (Auto) 0.2 (0.1-1.2) % Neut # (Auto) 5.43 (1.56-6.13) K/mm3 Lymph # (Auto) 0.61 L (1.18-3.74) K/mm3 [place] # (Auto) 0.13 L (0.24-0.36) K/mm3 Eos # (Auto) 0.00 L (0.04-0.36) K/mm3 Baso # (Auto) 0.01 (0.01-0.08) K/mm3 Manual Slide Review Abnormal smear Sodium 142 (136-145) mEq/L Potassium 3.8 (3.5-5.1) mEq/L Chloride 106 (98-107) mEq/L Carbon Dioxide 25 (21-32) mEq/L Anion Gap 14.8 (5-15) BUN 4 L (7-18) mg/dL Creatinine 0.6 (0.55-1.02) mg/dL Est Cr Clr Drug Dosing 108.26 mL/min Estimated GFR (MDRD) > 60 (>60) mL/min BUN/Creatinine Ratio 6.7 L (14-18) Glucose 166 H (74-106) mg/dL Calcium 9.2 (8.5-10.1) mg/dL Magnesium 1.9 (1.8-2.4) mg/dl C-Reactive Protein 5.1 H* (<1.0) mg/dL Jorge Alberto Results Last 24 Hours: Microbiology 05/08/17 21:46 Cryptosporidium/Giardia - Final Stool / Feces 05/08/17 21:46 Stool Culture - Final Stool / Feces - Final - Final Med Orders - Current: Current Medications Acetaminophen (Tylenol) 650 mg PO Q6H PRN PRN Reason: Pain (Mild 1-3) Last Admin: 05/09/17 08:46 Dose: 650 mg Acetaminophen/Butalbital/Caffeine (Fioricet 325-50-40 Mg) 1 tab PO Q6H PRN PRN Reason: Headache Last Admin: 05/10/17 22:11 Dose: 1 tab Hydrocodone Bitart/Acetaminophen (Moore 325-5 Mg) 1 tab PO Q6H PRN PRN Reason: Pain Last Admin: 05/12/17 11:52 Dose: 1 tab Diphenhydramine HCl (Benadryl) 25 mg PO Q6H NETTE Last Admin: 05/12/17 06:44 Dose: 25 mg Hydralazine HCl (Apresoline) 10 mg PO Q6H PRN PRN Reason: Hypertension Hydromorphone HCl (Dilaudid) 1 mg IVPUSH Q4H PRN PRN Reason: Pain Last Admin: 05/12/17 09:36 Dose: 1 mg Hyoscyamine (Hyomax-Sl) 0.125 mg SL Q6H PRN PRN Reason: Other Dextrose/Sodium Chloride (Dextrose 5%-1/2 Ns) 1,000 mls @ 100 mls/hr IV ASDIRECTED [facility] Last Admin: 05/12/17 09:15 Dose: 100 mls/hr Piperacillin Sod/Tazobactam (Sod 4.5 gm/ Dextrose/Water) 100 mls @ 25 mls/hr IV Q8H [facility] Magnesium Sulfate (Pharmacy To Dose - Magnesium Replacement) 1 dose .XX ASDIRECTED PRN PRN Reason: RX to Dose Metoprolol Tartrate (Lopressor) 5 mg IVPUSH Q4H PRN PRN Reason: Tachycardia Ondansetron HCl (Zofran) 4 mg IV Q6H PRN PRN Reason: Nausea/Vomiting Last Admin: 05/11/17 04:54 Dose: 4 mg Ondansetron HCl (Zofran Odt) 4 mg PO Q4H PRN PRN Reason: Abdominal Cramping Last Admin: 05/10/17 09:01 Dose: 4 mg Pantoprazole Sodium (Protonix) 40 mg PO DAILY@0700 [facility] Potassium Chloride (Pharmacy To Dose - Potassium Replacement) 1 dose .XX ASDIRECTED PRN PRN Reason: RX to Dose Saccharomyces Boulardii (Florastor) 250 mg PO BID [facility] Last Admin: 05/10/17 22:15 Dose: Not Given Sodium Chloride (Saline Flush) 10 ml FLUSH ASDIRECTED PRN PRN Reason: Keep Vein Open Sucralfate (Carafate) 1 gm PO Q6H [facility] Last Admin: 05/12/17 10:29 Dose: 1 gm Temazepam (Restoril) 15 mg PO BEDTIME PRN PRN Reason: Sleep Discontinued Medications Acetaminophen (Tylenol) 650 mg RECTAL Q4H PRN PRN Reason: Pain (mild 1-3) Clarithromycin (Biaxin) 500 mg PO BID [facility] Last Admin: 05/10/17 08:43 Dose: 500 mg Diatrizoate Meglum/Diatrizoate Sod (Gastrografin 37%) 90 ml PO ONETIME ONE Stop: 05/10/17 12:00 Last Admin: 05/10/17 12:52 Dose: 90 ml Dicyclomine HCl (Bentyl) 20 mg PO Q6H PRN PRN Reason: Abdominal cramps/diarrhea Last Admin: 05/08/17 15:26 Dose: 20 mg Diphenhydramine HCl (Benadryl) 25 mg IVPUSH ONETIME ONE Stop: 05/08/17 16:51 Last Admin: 05/08/17 16:56 Dose: 25 mg Diphenhydramine HCl (Benadryl) 50 mg PO ONETIME ONE Stop: 05/11/17 19:30 Last Admin: 05/11/17 20:32 Dose: 50 mg Enoxaparin Sodium (Lovenox) 40 mg SUBCUT DAILY [facility] Last Admin: 05/08/17 19:00 Dose: Not Given Famotidine (Pepcid) 20 mg PO BID [facility] Last Admin: 05/09/17 21:31 Dose: 20 mg Hydromorphone HCl (Dilaudid) 0.5 mg IVPUSH ONETIME ONE Stop: 05/08/17 10:23 Last Admin: 05/08/17 10:47 Dose: 0.5 mg Hydromorphone HCl (Dilaudid) 0.25 mg IVPUSH Q2H PRN PRN Reason: Pain (severe 7-10) Last Admin: 05/09/17 16:27 Dose: 0.25 mg Lactated Ringer's (Ringers, Lactated) 1,000 mls @ 150 mls/hr IV ASDIRECTED [facility] Last Admin: 05/08/17 10:43 Dose: 150 mls/hr Levofloxacin/Dextrose 500 mg/ (Premix) 100 mls @ 100 mls/hr IV Q24H [facility] Last Admin: 05/08/17 16:37 Dose: 100 mls/hr Metronidazole 500 mg/ Premix 100 mls @ 100 mls/hr IV Q6H [facility] Last Admin: 05/12/17 09:16 Dose: 100 mls/hr Levofloxacin/Dextrose 500 mg/ (Premix) 100 mls @ 100 mls/hr IV Q24H [facility] Last Admin: 05/09/17 08:48 Dose: 100 mls/hr Potassium Chloride 10 meq/ (Premix) 100 mls @ 100 mls/hr IV Q1H [facility] Stop: 05/09/17 16:59 Last Admin: 05/09/17 15:19 Dose: 100 mls/hr Dextrose/Sodium Chloride (Dextrose 5%-1/2 Ns) 1,000 mls @ 999 mls/hr IV ASDIRECTED [facility] Potassium Chloride 10 meq/ (Premix) 100 mls @ 100 mls/hr IV Q1H [facility] Stop: 05/10/17 17:59 Last Admin: 05/10/17 20:22 Dose: 100 mls/hr Piperacillin Sod/Tazobactam (Sod 3.375 gm/ Sodium Chloride) 100 mls @ 25 mls/ hr IV Q6H [facility] Last Admin: 05/10/17 15:07 Dose: Not Given Piperacillin Sod/Tazobactam (Sod 4.5 gm/ Sodium Chloride) 100 mls @ 200 mls/hr IV ONETIME ONE Stop: 05/10/17 15:29 Last Admin: 05/10/17 15:40 Dose: 200 mls/hr Piperacillin Sod/Tazobactam (Sod 4.5 gm/ Sodium Chloride) 100 mls @ 25 mls/hr IV Q8H [facility] Last Admin: 05/12/17 06:43 Dose: 25 mls/hr Piperacillin Sod/Tazobactam (Sod 4.5 gm/ Dextrose/Water) 100 mls @ 25 mls/hr IV Q8H [facility] Last Admin: 05/12/17 11:01 Dose: Not Given Iopamidol (Isovue-300 (61%)) 100 ml IVPUSH ONETIME ONE Stop: 05/10/17 12:00 Last Admin: 05/10/17 12:52 Dose: 100 ml Ketorolac Tromethamine (Toradol) 30 mg IV Q6H PRN PRN Reason: Pain (moderate 4-6) Last Admin: 05/10/17 01:46 Dose: 30 mg Magnesium Oxide (Magnesium Oxide) 400 mg PO ONETIME ONE Stop: 05/11/17 11:16 Last Admin: 05/11/17 11:09 Dose: 400 mg Magnesium Sulfate (Pharmacy To Dose - Magnesium Replacement) 1 dose .XX ASDIRECTED [facility] Meperidine HCl (Demerol) 50 mg IVPUSH Q4H PRN PRN Reason: Pain Last Admin: 05/11/17 04:41 Dose: 50 mg Methylprednisolone Sodium Succinate (Solu-Medrol) 40 mg IVPUSH ONETIME ONE Stop: 05/11/17 22:18 Last Admin: 05/11/17 22:31 Dose: 40 mg Ondansetron HCl (Zofran) 4 mg IVPUSH ONETIME ONE Stop: 05/08/17 10:23 Last Admin: 05/08/17 10:44 Dose: 4 mg Ondansetron HCl (Zofran Odt) 4 mg PO Q6H [facility] Last Admin: 05/12/17 11:49 Dose: 4 mg Pantoprazole Sodium (Protonix) 40 mg PO BIDAC [facility] Last Admin: 05/10/17 06:47 Dose: 40 mg Pantoprazole Sodium (Protonix Iv) 40 mg IVPUSH BIDAC [facility] Last Admin: 05/12/17 05:37 Dose: 40 mg Potassium Chloride (Potassium Chloride) 60 meq PO ONETIME ONE Stop: 05/08/17 15:51 Last Admin: 05/08/17 17:06 Dose: Not Given Potassium Chloride (Klor-Con M20) 60 meq PO ONETIME ONE Stop: 05/08/17 17:18 Last Admin: 05/08/17 17:42 Dose: 60 meq Potassium Chloride (Pharmacy To Dose - Potassium Replacement) 1 dose .XX ASDIRECTED [facility] Potassium Chloride (Klor-Con M20) 40 meq PO Q4H [facility] Stop: 05/09/17 14:01 Last Admin: 05/09/17 10:03 Dose: 40 meq Potassium Chloride (Klor-Con M20) 40 meq PO Q4H [facility] Stop: 05/11/17 12:31 Last Admin: 05/11/17 14:44 Dose: 40 meq Potassium Chloride (Klor-Con M20) 40 meq PO ONETIME ONE Stop: 05/11/17 14:46 Last Admin: 05/11/17 14:45 Dose: Not Given Sodium Chloride (Saline Flush) 10 ml FLUSH ONETIME ONE Stop: 05/10/17 12:00 Last Admin: 05/10/17 12:52 Dose: 10 ml - Exam General: Alert, Oriented Neck: Supple Lungs: Clear to Auscultation, Normal Respiratory Effort Cardiovascular: Regular Rate, Regular Rhythm GI/Abdominal Exam: Normal Bowel Sounds, Soft, Non-Tender, No Organomegaly, No Distention, No Abnormal Bruit, No Mass, Pelvis Stable - Problem List Review Problem List Initiated/Reviewed/Updated: Yes - My Orders Last 24 Hours: My Active Orders 05/12/17 14:29 Sodium Chloride 0.9% [Saline Flush] 10 ml FLUSH ASDIRECTED PRN Convert IV to Saline Lock [OM.PC] Routine 05/12/17 Dinner [employer] Diet [DIET] - Plan Plan:: Impression/Plan: Acute: Diverticulitis of Large Intestine, Improving - LLQ abdominal pain - In ED on 05/07/17 and 05/08/17 with symptoms; ;Discharged from ED on Cipro 500mg BID, Flagyl 500 mg TID, Ultram 50 mg Q6 PRN, and Bntyl 20 mg Q6 PRN on 05/07/17 - No known history of diverticulosis - CT scan abdomen and pelvis with contrast on 05/07/17 1. Left-sided inflammatory change, most likely representing diverticulitis within the left colon. No abscess seen at this time 2. Mild increased stool within the colon and other incidental findings Repeat CT scan with contrast done yesterday with evidence of microperforation, no abscess- see report - CRP increasin.70 --> 5.1, continues to improve - WBC improved: 13.84 --> 6.20 (resolved) - UA negative - Prior tubal ligation-- no other abdominal surgeries - PO as per GS - Continue current ATB: Flagyl 500 mg TID, Zosyn, and Probiotic - Encourage to Ambulate QID as tolerated - Pain medication with Moore per Dr. Harris's recommendation - Recommend outpatient colonoscopy after discharge with Dr. Harris Epigastric Abdominal Pain, Improved - Liver/Lipase enzymes are normal - Serum and Stool Cx H. Pylori positive - Continue PRN Levsin/Zofran for Abdominal Cramps and PPI - Antibiotics prescribed as above - GS consulted with Dr. Garcia for further eval; Dr. Harris now is covering for surgical care - Will recommend possible EGD for definitive diagnosis if symptoms persist after discharge with Dr. Harris Helicobacter Pylori Infection - Treatment as above - + via stool study Back Pain - Pos for bilateral CVA test - Suspect MSK Pain/Spasm - UA to r/o UTI Skin Rash - Right Groin region - Unlikely rash from current antibiotics - Received Steroids and H2B - Will monitor Resolved: Headache - Pain medications as indicated Mild Hypokalemia - K is now 3.8 - 2/2 GI Loss, NPO status Mild Hypomagnesemia - Mg is now 1.9 - 2/2 GI Loss, NPO status Atypical Chest Pain - Basic cardiac work up: all negative - Likely referred pain Chronic: Hx/o tubal ligation Plan: She remains clinically stable Continue treatment Routine AM Labs DVT/PE prophylaxis - ambulation and GARCIA hose GI prophylaxis - PPI BID General Surgery following Additional orders as above Establish with a primary care provider for outpatient follow-up CM/SW for discharge planning Code Status: Full Code LOS > 96 hrs due to slow response to treatment pt VS are good only complaint is headache and nausea exam normal especially the abdomen no tenderness in the LLQ ass improved plan diet will help her head ache and stopping the flagly has a good change of correcting her nausea HANY
[2017-05-12] MEDS: Piperacillin/Tazobactam 4.5 GM in Dextrose 5% in Water 100 ML IV SCH ×2 (15:44)
[2017-05-12] MEDS: Acetaminophen/Butalbital/Caffeine 325-50-40 MG Tab PO PRN (15:48)
[2017-05-13] MEDS: Piperacillin/Tazobactam 4.5 GM in Dextrose 5% in Water 100 ML IV SCH ×4 (00:34→06:56)
[2017-05-13] MEDS: diphenhydrAMINE 25 MG Cap PO SCH ×4 (00:34→14:24)
[2017-05-13] MEDS: Sucralfate Suspension 1 GM/10 ML Cup PO SCH ×3 (00:34→11:54)
[2017-05-13] MEDS ORDERED: Pantoprazole 40 MG Tab.CR PO SCH (07:00)
[2017-05-13] MEDS: Saccharomyces Boulardii (Probiotic) 250 MG Cap PO SCH (09:04)
[2017-05-13] MEDS: Potassium Chloride 20 MEQ Tab.ER PO SCH ×2 (09:05→12:34)
--- NOTE | 2017-05-13 11:53 | PCM.PN ---
- General Info Date of Service: 05/13/17 Admission Dx/Problem (Free Text): Diverticulitis Patient doing very well this morning; no abdominal pain, no nausea, tolerating meals well without increased pain or nausea. VSS. Labs stable. Continues on IV zosyn, flagyl DC'd yesterday d/t nausea. Functional Status: Reports: Pain Controlled, Tolerating Diet, Ambulating, Urinating. Denies: New Symptoms - Review of Systems General: Reports: No Symptoms HEENT: Reports: No Symptoms Pulmonary: Reports: No Symptoms Cardiovascular: Reports: No Symptoms Gastrointestinal: Reports: No Symptoms. Denies: Abdominal Pain, Diarrhea, Nausea, Vomiting Genitourinary: Reports: No Symptoms Musculoskeletal: Reports: No Symptoms Skin: Reports: No Symptoms Neurological: Reports: No Symptoms Psychiatric: Reports: No Symptoms - Patient Data Vitals - Most Recent: Last Vital Signs Temp 98.4 F 05/13/17 07:25 Pulse 54 L 05/13/17 07:25 Resp 20 05/13/17 07:25 BP 120/71 05/13/17 07:25 Pulse Ox 96 05/13/17 07:25 Weight - Most Recent: 149 lb 14.4 oz I&O - Last 24 Hours: Intake & Output 05/12/17 05/13/17 05/13/17 22:59 06:59 14:59 Intake Total 620 300 Output Total 1 Balance 619 300 Lab Results Last 24 Hours: Laboratory Results - last 24 hr 05/13/17 Range/Units 07:33 Sodium 141 (136-145) mEq/L Potassium 3.2 L (3.5-5.1) mEq/L Chloride 104 (98-107) mEq/L Carbon Dioxide 26 (21-32) mEq/L Anion Gap 14.2 (5-15) BUN 10 (7-18) mg/dL Creatinine 0.8 (0.55-1.02) mg/dL Est Cr Clr Drug Dosing 81.19 mL/min Estimated GFR (MDRD) > 60 (>60) mL/min BUN/Creatinine Ratio 12.5 L (14-18) Glucose 99 (74-106) mg/dL Calcium 8.9 (8.5-10.1) mg/dL Magnesium 1.9 (1.8-2.4) mg/dl Jorge Alberto Results Last 24 Hours: Microbiology 05/08/17 21:46 Cryptosporidium/Giardia - Final Stool / Feces Med Orders - Current: Current Medications Acetaminophen (Tylenol) 650 mg PO Q6H PRN PRN Reason: Pain (Mild 1-3) Last Admin: 05/09/17 08:46 Dose: 650 mg Acetaminophen/Butalbital/Caffeine (Fioricet 325-50-40 Mg) 1 tab PO Q6H PRN PRN Reason: Headache Last Admin: 05/12/17 15:48 Dose: 1 tab Hydrocodone Bitart/Acetaminophen ([place] 325-5 Mg) 1 tab PO Q6H PRN PRN Reason: Pain Last Admin: 05/12/17 11:52 Dose: 1 tab Diphenhydramine HCl (Benadryl) 25 mg PO Q6H NETTE Last Admin: 05/13/17 06:56 Dose: 25 mg Hydralazine HCl (Apresoline) 10 mg PO Q6H PRN PRN Reason: Hypertension Last Admin: 05/12/17 17:06 Dose: 10 mg Hydromorphone HCl (Dilaudid) 1 mg IVPUSH Q4H PRN PRN Reason: Pain Last Admin: 05/12/17 09:36 Dose: 1 mg Hyoscyamine (Hyomax-Sl) 0.125 mg SL Q6H PRN PRN Reason: Other Piperacillin Sod/Tazobactam (Sod 4.5 gm/ Dextrose/Water) 100 mls @ 25 mls/hr IV Q8H [facility] Last Admin: 05/13/17 06:56 Dose: 25 mls/hr Magnesium Sulfate (Pharmacy To Dose - Magnesium Replacement) 1 dose .XX ASDIRECTED PRN PRN Reason: RX to Dose Metoprolol Tartrate (Lopressor) 5 mg IVPUSH Q4H PRN PRN Reason: Tachycardia Ondansetron HCl (Zofran) 4 mg IV Q6H PRN PRN Reason: Nausea/Vomiting Last Admin: 05/11/17 04:54 Dose: 4 mg Ondansetron HCl (Zofran Odt) 4 mg PO Q4H PRN PRN Reason: Abdominal Cramping Last Admin: 05/10/17 09:01 Dose: 4 mg Pantoprazole Sodium (Protonix) 40 mg PO DAILY@0700 [facility] Last Admin: 05/13/17 06:56 Dose: 40 mg Potassium Chloride (Pharmacy To Dose - Potassium Replacement) 1 dose .XX ASDIRECTED PRN PRN Reason: RX to Dose Potassium Chloride (Klor-Con M20) 40 meq PO Q4H [facility] Stop: 05/13/17 12:16 Last Admin: 05/13/17 09:05 Dose: 40 meq Saccharomyces Boulardii (Florastor) 250 mg PO BID [facility] Last Admin: 05/13/17 09:04 Dose: 250 mg Sodium Chloride (Saline Flush) 10 ml FLUSH ASDIRECTED PRN PRN Reason: Keep Vein Open Sucralfate (Carafate) 1 gm PO Q6H [facility] Last Admin: 05/13/17 06:56 Dose: 1 gm Temazepam (Restoril) 15 mg PO BEDTIME PRN PRN Reason: Sleep Discontinued Medications Acetaminophen (Tylenol) 650 mg RECTAL Q4H PRN PRN Reason: Pain (mild 1-3) Clarithromycin (Biaxin) 500 mg PO BID [facility] Last Admin: 05/10/17 08:43 Dose: 500 mg Diatrizoate Meglum/Diatrizoate Sod (Gastrografin 37%) 90 ml PO ONETIME ONE Stop: 05/10/17 12:00 Last Admin: 05/10/17 12:52 Dose: 90 ml Dicyclomine HCl (Bentyl) 20 mg PO Q6H PRN PRN Reason: Abdominal cramps/diarrhea Last Admin: 05/08/17 15:26 Dose: 20 mg Diphenhydramine HCl (Benadryl) 25 mg IVPUSH ONETIME ONE Stop: 05/08/17 16:51 Last Admin: 05/08/17 16:56 Dose: 25 mg Diphenhydramine HCl (Benadryl) 50 mg PO ONETIME ONE Stop: 05/11/17 19:30 Last Admin: 05/11/17 20:32 Dose: 50 mg Enoxaparin Sodium (Lovenox) 40 mg SUBCUT DAILY [facility] Last Admin: 05/08/17 19:00 Dose: Not Given Famotidine (Pepcid) 20 mg PO BID [facility] Last Admin: 05/09/17 21:31 Dose: 20 mg Hydromorphone HCl (Dilaudid) 0.5 mg IVPUSH ONETIME ONE Stop: 05/08/17 10:23 Last Admin: 05/08/17 10:47 Dose: 0.5 mg Hydromorphone HCl (Dilaudid) 0.25 mg IVPUSH Q2H PRN PRN Reason: Pain (severe 7-10) Last Admin: 05/09/17 16:27 Dose: 0.25 mg Lactated Ringer's (Ringers, Lactated) 1,000 mls @ 150 mls/hr IV ASDIRECTED [facility] Last Admin: 05/08/17 10:43 Dose: 150 mls/hr Dextrose/Sodium Chloride (Dextrose 5%-1/2 Ns) 1,000 mls @ 100 mls/hr IV ASDIRECTED [facility] Last Admin: 05/12/17 19:10 Dose: 100 mls/hr Levofloxacin/Dextrose 500 mg/ (Premix) 100 mls @ 100 mls/hr IV Q24H [facility] Last Admin: 05/08/17 16:37 Dose: 100 mls/hr Metronidazole 500 mg/ Premix 100 mls @ 100 mls/hr IV Q6H [facility] Last Admin: 05/12/17 09:16 Dose: 100 mls/hr Levofloxacin/Dextrose 500 mg/ (Premix) 100 mls @ 100 mls/hr IV Q24H [facility] Last Admin: 05/09/17 08:48 Dose: 100 mls/hr Potassium Chloride 10 meq/ (Premix) 100 mls @ 100 mls/hr IV Q1H [facility] Stop: 05/09/17 16:59 Last Admin: 05/09/17 15:19 Dose: 100 mls/hr Dextrose/Sodium Chloride (Dextrose 5%-1/2 Ns) 1,000 mls @ 999 mls/hr IV ASDIRECTED [facility] Potassium Chloride 10 meq/ (Premix) 100 mls @ 100 mls/hr IV Q1H [facility] Stop: 05/10/17 17:59 Last Admin: 05/10/17 20:22 Dose: 100 mls/hr Piperacillin Sod/Tazobactam (Sod 3.375 gm/ Sodium Chloride) 100 mls @ 25 mls/ hr IV Q6H [facility] Last Admin: 05/10/17 15:07 Dose: Not Given Piperacillin Sod/Tazobactam (Sod 4.5 gm/ Sodium Chloride) 100 mls @ 200 mls/hr IV ONETIME ONE Stop: 05/10/17 15:29 Last Admin: 05/10/17 15:40 Dose: 200 mls/hr Piperacillin Sod/Tazobactam (Sod 4.5 gm/ Sodium Chloride) 100 mls @ 25 mls/hr IV Q8H [facility] Last Admin: 05/12/17 06:43 Dose: 25 mls/hr Piperacillin Sod/Tazobactam (Sod 4.5 gm/ Dextrose/Water) 100 mls @ 25 mls/hr IV Q8H [facility] Last Admin: 05/12/17 11:01 Dose: Not Given Iopamidol (Isovue-300 (61%)) 100 ml IVPUSH ONETIME ONE Stop: 05/10/17 12:00 Last Admin: 05/10/17 12:52 Dose: 100 ml Ketorolac Tromethamine (Toradol) 30 mg IV Q6H PRN PRN Reason: Pain (moderate 4-6) Last Admin: 05/10/17 01:46 Dose: 30 mg Magnesium Oxide (Magnesium Oxide) 400 mg PO ONETIME ONE Stop: 05/11/17 11:16 Last Admin: 05/11/17 11:09 Dose: 400 mg Magnesium Sulfate (Pharmacy To Dose - Magnesium Replacement) 1 dose .XX ASDIRECTED [facility] Meperidine HCl (Demerol) 50 mg IVPUSH Q4H PRN PRN Reason: Pain Last Admin: 05/11/17 04:41 Dose: 50 mg Methylprednisolone Sodium Succinate (Solu-Medrol) 40 mg IVPUSH ONETIME ONE Stop: 05/11/17 22:18 Last Admin: 05/11/17 22:31 Dose: 40 mg Ondansetron HCl (Zofran) 4 mg IVPUSH ONETIME ONE Stop: 05/08/17 10:23 Last Admin: 05/08/17 10:44 Dose: 4 mg Ondansetron HCl (Zofran Odt) 4 mg PO Q6H [facility] Last Admin: 05/12/17 11:49 Dose: 4 mg Pantoprazole Sodium (Protonix) 40 mg PO BIDAC [facility] Last Admin: 05/10/17 06:47 Dose: 40 mg Pantoprazole Sodium (Protonix Iv) 40 mg IVPUSH BIDAC [facility] Last Admin: 05/12/17 05:37 Dose: 40 mg Potassium Chloride (Potassium Chloride) 60 meq PO ONETIME ONE Stop: 05/08/17 15:51 Last Admin: 05/08/17 17:06 Dose: Not Given Potassium Chloride (Klor-Con M20) 60 meq PO ONETIME ONE Stop: 05/08/17 17:18 Last Admin: 05/08/17 17:42 Dose: 60 meq Potassium Chloride (Pharmacy To Dose - Potassium Replacement) 1 dose .XX ASDIRECTED NETTE Potassium Chloride (Klor-Con M20) 40 meq PO Q4H [facility] Stop: 05/09/17 14:01 Last Admin: 05/09/17 10:03 Dose: 40 meq Potassium Chloride (Klor-Con M20) 40 meq PO Q4H [facility] Stop: 05/11/17 12:31 Last Admin: 05/11/17 14:44 Dose: 40 meq Potassium Chloride (Klor-Con M20) 40 meq PO ONETIME ONE Stop: 05/11/17 14:46 Last Admin: 05/11/17 14:45 Dose: Not Given Sodium Chloride (Saline Flush) 10 ml FLUSH ONETIME ONE Stop: 05/10/17 12:00 Last Admin: 05/10/17 12:52 Dose: 10 ml - Exam Quality Assessment: DVT Prophylaxis General: Alert, Oriented, Cooperative, No Acute Distress HEENT: Pupils Equal, Pupils Reactive, EOMI, Mucous Membr. Moist/[place] Neck: Supple Lungs: Clear to Auscultation, Normal Respiratory Effort Cardiovascular: Regular Rate, Regular Rhythm GI/Abdominal Exam: Normal Bowel Sounds, Soft, Non-Tender, No Organomegaly, No Distention. No: Guarding, Rigid, Rebound, Tender (Female) Exam: Deferred Back Exam: Normal Inspection Extremities: Normal Inspection, No Pedal Edema, Normal Capillary Refill Peripheral Pulses: 1+: Dorsalis Pedis (L), Dorsalis Pedis (R) Neurological: No New Focal Deficit Psy/Mental Status: Alert, Normal Affect, Normal Mood - Problem List & Annotations (1) Diverticulitis SNOMED Code(s): 943040649 Code(s): K57.92 - DVTRCLI OF INTEST, PART UNSP, W/O PERF OR ABSCESS W/O BLEED Status: Acute Priority: High Current Visit: Yes Qualifiers: Diverticulitis site: large intestine Diverticulitis bleeding: without bleeding Diverticulitis complication: without perforation or abscess Qualified Code(s): K57.32 - Diverticulitis of large intestine without perforation or abscess without bleeding (2) Positive H. pylori test SNOMED Code(s): 725879854 Code(s): A04.8 - OTHER SPECIFIED BACTERIAL INTESTINAL INFECTIONS Status: Acute Priority: High Current Visit: Yes (3) Atypical chest pain SNOMED Code(s): 033203959 Code(s): R07.89 - OTHER CHEST PAIN Status: Acute Priority: High Current Visit: Yes (4) Hypokalemia SNOMED Code(s): 15645318 Code(s): E87.6 - HYPOKALEMIA Status: Acute Priority: High Current Visit : Yes (5) Epigastric abdominal pain SNOMED Code(s): 43688959 Code(s): R10.13 - EPIGASTRIC PAIN Status: Acute Priority: Medium Current Visit: Yes (6) Headache SNOMED Code(s): 50474557 Code(s): R51 - HEADACHE Status: Resolved Priority: Low Current Visit: Yes Qualifiers: Headache type: tension-type Headache chronicity pattern: acute headache Intractability: not intractable Qualified Code(s): G44.209 - Tension-type headache, unspecified, not intractable - Problem List Review Problem List Initiated/Reviewed/Updated: Yes - Plan Plan:: Impression/Plan: Acute: Diverticulitis of Large Intestine, Improving - LLQ abdominal pain - In ED on 05/07/17 and 05/08/17 with symptoms; ;Discharged from ED on Cipro 500mg BID, Flagyl 500 mg TID, Ultram 50 mg Q6 PRN, and Bntyl 20 mg Q6 PRN on 05/07/17 - No known history of diverticulosis - CT scan abdomen and pelvis with contrast on 05/07/17 1. Left-sided inflammatory change, most likely representing diverticulitis within the left colon. No abscess seen at this time 2. Mild increased stool within the colon and other incidental findings Repeat CT scan with contrast done yesterday with evidence of microperforation, no abscess- see report - CRP increasin.70 --> 5.1, continues to improve - WBC improved: 13.84 --> 6.20 (resolved) - UA negative - Prior tubal ligation-- no other abdominal surgeries - PO as per GS - Continue current ATB: Zosyn, and Probiotic--flagyl dc'd due to nausea which is improved/resolved - Encourage to Ambulate QID as tolerated - Pain medication with [place] per Dr. Harris's recommendation - Recommend outpatient colonoscopy after discharge with Dr. Harris Epigastric Abdominal Pain, Improved - Liver/Lipase enzymes are normal - Serum and Stool Cx H. Pylori positive - Continue PRN Levsin/Zofran for Abdominal Cramps and PPI - Antibiotics prescribed as above - GS consulted with Dr. Garcia for further eval; Dr. Harris now is covering for surgical care - Will recommend possible EGD for definitive diagnosis if symptoms persist after discharge with Dr. Harris Helicobacter Pylori Infection - Treatment as above - + via stool study Back Pain - Pos for bilateral CVA test - Suspect MSK Pain/Spasm - UA to r/o UTI Skin Rash--improved - Right Groin Region - Unlikely hypersensitivity from current antibiotics - Received Steroids and H2B - Will monitor Resolved: Headache - Pain medications as indicated Mild Hypokalemia - K is now 3.8 - 2/2 GI Loss, NPO status Mild Hypomagnesemia - Mg is now 1.9 - 2/2 GI Loss, NPO status Atypical Chest Pain - Basic cardiac work up: all negative - Likely referred pain Chronic: Hx/o tubal ligation Plan: She remains clinically stable--OK to DC today, planning DC today. Call placed to Dr. Harris to assure he was ok with DC today, states he will be in later and discharge patient. Continue treatment as above DVT/PE prophylaxis-ambulation and GARCIA hose GI prophylaxis-PPI BID General Surgery following--Dr. Harris Additional orders as above Establish with a primary care provider for outpatient follow-up; F/up with Dr. Harris as outpatient after discharge also. CM/SW for discharge planning Code Status: Full Code LOS > 96 hrs due to slow response to treatment
[2017-05-13 13:50] VITALS: BP 129/84
--- NOTE | 2017-05-13 14:41 | PCM.PN ---
- General Info Date of Service: 05/13/17 - Patient Data Vitals - Most Recent: Last Vital Signs Temp 98.1 F 05/13/17 12:21 Pulse 63 05/13/17 12:21 Resp 19 05/13/17 12:21 BP 129/84 05/13/17 12:21 Pulse Ox 91 L 05/13/17 12:21 Weight - Most Recent: 67.993 kg I&O - Last 24 Hours: Intake & Output 05/12/17 05/13/17 05/13/17 23:59 07:59 15:59 Intake Total 620 300 0 Output Total 1 Balance 619 300 0 Lab Results Last 24 Hours: Laboratory Results - last 24 hr 05/13/17 Range/Units 07:33 Sodium 141 (136-145) mEq/L Potassium 3.2 L (3.5-5.1) mEq/L Chloride 104 (98-107) mEq/L Carbon Dioxide 26 (21-32) mEq/L Anion Gap 14.2 (5-15) BUN 10 (7-18) mg/dL Creatinine 0.8 (0.55-1.02) mg/dL Est Cr Clr Drug Dosing 81.19 mL/min Estimated GFR (MDRD) > 60 (>60) mL/min BUN/Creatinine Ratio 12.5 L (14-18) Glucose 99 (74-106) mg/dL Calcium 8.9 (8.5-10.1) mg/dL Magnesium 1.9 (1.8-2.4) mg/dl Jorge Alberto Results Last 24 Hours: Microbiology 05/08/17 21:46 Cryptosporidium/Giardia - Final Stool / Feces Med Orders - Current: Current Medications Discontinued Medications Acetaminophen (Tylenol) 650 mg RECTAL Q4H PRN PRN Reason: Pain (mild 1-3) Acetaminophen (Tylenol) 650 mg PO Q6H PRN PRN Reason: Pain (Mild 1-3) Last Admin: 05/09/17 08:46 Dose: 650 mg Acetaminophen/Butalbital/Caffeine (Fioricet 325-50-40 Mg) 1 tab PO Q6H PRN PRN Reason: Headache Last Admin: 05/12/17 15:48 Dose: 1 tab Hydrocodone Bitart/Acetaminophen (Nash 325-5 Mg) 1 tab PO Q6H PRN PRN Reason: Pain Last Admin: 05/12/17 11:52 Dose: 1 tab Clarithromycin (Biaxin) 500 mg PO BID [facility] Last Admin: 05/10/17 08:43 Dose: 500 mg Diatrizoate Meglum/Diatrizoate Sod (Gastrografin 37%) 90 ml PO ONETIME ONE Stop: 05/10/17 12:00 Last Admin: 05/10/17 12:52 Dose: 90 ml Dicyclomine HCl (Bentyl) 20 mg PO Q6H PRN PRN Reason: Abdominal cramps/diarrhea Last Admin: 05/08/17 15:26 Dose: 20 mg Diphenhydramine HCl (Benadryl) 25 mg IVPUSH ONETIME ONE Stop: 05/08/17 16:51 Last Admin: 05/08/17 16:56 Dose: 25 mg Diphenhydramine HCl (Benadryl) 50 mg PO ONETIME ONE Stop: 05/11/17 19:30 Last Admin: 05/11/17 20:32 Dose: 50 mg Diphenhydramine HCl (Benadryl) 25 mg PO Q6H [facility] Last Admin: 05/13/17 14:24 Dose: 25 mg Enoxaparin Sodium (Lovenox) 40 mg SUBCUT DAILY [facility] Last Admin: 05/08/17 19:00 Dose: Not Given Famotidine (Pepcid) 20 mg PO BID [facility] Last Admin: 05/09/17 21:31 Dose: 20 mg Hydralazine HCl (Apresoline) 10 mg PO Q6H PRN PRN Reason: Hypertension Last Admin: 05/12/17 17:06 Dose: 10 mg Hydromorphone HCl (Dilaudid) 0.5 mg IVPUSH ONETIME ONE Stop: 05/08/17 10:23 Last Admin: 05/08/17 10:47 Dose: 0.5 mg Hydromorphone HCl (Dilaudid) 0.25 mg IVPUSH Q2H PRN PRN Reason: Pain (severe 7-10) Last Admin: 05/09/17 16:27 Dose: 0.25 mg Hydromorphone HCl (Dilaudid) 1 mg IVPUSH Q4H PRN PRN Reason: Pain Last Admin: 05/12/17 09:36 Dose: 1 mg Hyoscyamine (Hyomax-Sl) 0.125 mg SL Q6H PRN PRN Reason: Other Lactated Ringer's (Ringers, Lactated) 1,000 mls @ 150 mls/hr IV ASDIRECTED [facility] Last Admin: 05/08/17 10:43 Dose: 150 mls/hr Dextrose/Sodium Chloride (Dextrose 5%-1/2 Ns) 1,000 mls @ 100 mls/hr IV ASDIRECTED [facility] Last Admin: 05/12/17 19:10 Dose: 100 mls/hr Levofloxacin/Dextrose 500 mg/ (Premix) 100 mls @ 100 mls/hr IV Q24H [facility] Last Admin: 05/08/17 16:37 Dose: 100 mls/hr Metronidazole 500 mg/ Premix 100 mls @ 100 mls/hr IV Q6H [facility] Last Admin: 05/12/17 09:16 Dose: 100 mls/hr Levofloxacin/Dextrose 500 mg/ (Premix) 100 mls @ 100 mls/hr IV Q24H [facility] Last Admin: 05/09/17 08:48 Dose: 100 mls/hr Potassium Chloride 10 meq/ (Premix) 100 mls @ 100 mls/hr IV Q1H [facility] Stop: 05/09/17 16:59 Last Admin: 05/09/17 15:19 Dose: 100 mls/hr Dextrose/Sodium Chloride (Dextrose 5%-1/2 Ns) 1,000 mls @ 999 mls/hr IV ASDIRECTED [facility] Potassium Chloride 10 meq/ (Premix) 100 mls @ 100 mls/hr IV Q1H [facility] Stop: 05/10/17 17:59 Last Admin: 05/10/17 20:22 Dose: 100 mls/hr Piperacillin Sod/Tazobactam (Sod 3.375 gm/ Sodium Chloride) 100 mls @ 25 mls/ hr IV Q6H [facility] Last Admin: 05/10/17 15:07 Dose: Not Given Piperacillin Sod/Tazobactam (Sod 4.5 gm/ Sodium Chloride) 100 mls @ 200 mls/hr IV ONETIME ONE Stop: 05/10/17 15:29 Last Admin: 05/10/17 15:40 Dose: 200 mls/hr Piperacillin Sod/Tazobactam (Sod 4.5 gm/ Sodium Chloride) 100 mls @ 25 mls/hr IV Q8H [facility] Last Admin: 05/12/17 06:43 Dose: 25 mls/hr Piperacillin Sod/Tazobactam (Sod 4.5 gm/ Dextrose/Water) 100 mls @ 25 mls/hr IV Q8H [facility] Last Admin: 05/12/17 11:01 Dose: Not Given Piperacillin Sod/Tazobactam (Sod 4.5 gm/ Dextrose/Water) 100 mls @ 25 mls/hr IV Q8H [facility] Last Admin: 05/13/17 06:56 Dose: 25 mls/hr Iopamidol (Isovue-300 (61%)) 100 ml IVPUSH ONETIME ONE Stop: 05/10/17 12:00 Last Admin: 05/10/17 12:52 Dose: 100 ml Ketorolac Tromethamine (Toradol) 30 mg IV Q6H PRN PRN Reason: Pain (moderate 4-6) Last Admin: 05/10/17 01:46 Dose: 30 mg Magnesium Oxide (Magnesium Oxide) 400 mg PO ONETIME ONE Stop: 05/11/17 11:16 Last Admin: 05/11/17 11:09 Dose: 400 mg Magnesium Sulfate (Pharmacy To Dose - Magnesium Replacement) 1 dose .XX ASDIRECTED PRN PRN Reason: RX to Dose Magnesium Sulfate (Pharmacy To Dose - Magnesium Replacement) 1 dose .XX ASDIRECTED [facility] Meperidine HCl (Demerol) 50 mg IVPUSH Q4H PRN PRN Reason: Pain Last Admin: 05/11/17 04:41 Dose: 50 mg Methylprednisolone Sodium Succinate (Solu-Medrol) 40 mg IVPUSH ONETIME ONE Stop: 05/11/17 22:18 Last Admin: 05/11/17 22:31 Dose: 40 mg Metoprolol Tartrate (Lopressor) 5 mg IVPUSH Q4H PRN PRN Reason: Tachycardia Ondansetron HCl (Zofran) 4 mg IVPUSH ONETIME ONE Stop: 05/08/17 10:23 Last Admin: 05/08/17 10:44 Dose: 4 mg Ondansetron HCl (Zofran) 4 mg IV Q6H PRN PRN Reason: Nausea/Vomiting Last Admin: 05/11/17 04:54 Dose: 4 mg Ondansetron HCl (Zofran Odt) 4 mg PO Q4H PRN PRN Reason: Abdominal Cramping Last Admin: 05/10/17 09:01 Dose: 4 mg Ondansetron HCl (Zofran Odt) 4 mg PO Q6H [facility] Last Admin: 05/12/17 11:49 Dose: 4 mg Pantoprazole Sodium (Protonix) 40 mg PO BIDAC [facility] Last Admin: 05/10/17 06:47 Dose: 40 mg Pantoprazole Sodium (Protonix Iv) 40 mg IVPUSH BIDAC [facility] Last Admin: 05/12/17 05:37 Dose: 40 mg Pantoprazole Sodium (Protonix) 40 mg PO DAILY@0700 [facility] Last Admin: 05/13/17 06:56 Dose: 40 mg Potassium Chloride (Potassium Chloride) 60 meq PO ONETIME ONE Stop: 05/08/17 15:51 Last Admin: 05/08/17 17:06 Dose: Not Given Potassium Chloride (Pharmacy To Dose - Potassium Replacement) 1 dose .XX ASDIRECTED PRN PRN Reason: RX to Dose Potassium Chloride (Klor-Con M20) 60 meq PO ONETIME ONE Stop: 05/08/17 17:18 Last Admin: 05/08/17 17:42 Dose: 60 meq Potassium Chloride (Pharmacy To Dose - Potassium Replacement) 1 dose .XX ASDIRECTED [facility] Potassium Chloride (Klor-Con M20) 40 meq PO Q4H [facility] Stop: 05/09/17 14:01 Last Admin: 05/09/17 10:03 Dose: 40 meq Potassium Chloride (Klor-Con M20) 40 meq PO Q4H [facility] Stop: 05/11/17 12:31 Last Admin: 05/11/17 14:44 Dose: 40 meq Potassium Chloride (Klor-Con M20) 40 meq PO ONETIME ONE Stop: 05/11/17 14:46 Last Admin: 05/11/17 14:45 Dose: Not Given Potassium Chloride (Klor-Con M20) 40 meq PO Q4H [facility] Stop: 05/13/17 12:16 Last Admin: 05/13/17 12:34 Dose: 40 meq Saccharomyces Boulardii (Florastor) 250 mg PO BID [facility] Last Admin: 05/13/17 09:04 Dose: 250 mg Sodium Chloride (Saline Flush) 10 ml FLUSH ONETIME ONE Stop: 05/10/17 12:00 Last Admin: 05/10/17 12:52 Dose: 10 ml Sodium Chloride (Saline Flush) 10 ml FLUSH ASDIRECTED PRN PRN Reason: Keep Vein Open Sucralfate (Carafate) 1 gm PO Q6H [facility] Last Admin: 05/13/17 11:54 Dose: 1 gm Temazepam (Restoril) 15 mg PO BEDTIME PRN PRN Reason: Sleep - Problem List Review Problem List Initiated/Reviewed/Updated: Yes - My Orders Last 24 Hours: My Active Orders 05/12/17 14:29 Convert IV to Saline Lock [OM.PC] Routine 05/12/17 Dinner [employer] Diet [DIET] 05/13/17 14:36 Ready for Discharge [RC] PER UNIT ROUTINE - Plan Plan:: Impression/Plan: Acute: Diverticulitis of Large Intestine, Improving - LLQ abdominal pain - In ED on 05/07/17 and 05/08/17 with symptoms; ;Discharged from ED on Cipro 500mg BID, Flagyl 500 mg TID, Ultram 50 mg Q6 PRN, and Bntyl 20 mg Q6 PRN on 05/07/17 - No known history of diverticulosis - CT scan abdomen and pelvis with contrast on 05/07/17 1. Left-sided inflammatory change, most likely representing diverticulitis within the left colon. No abscess seen at this time 2. Mild increased stool within the colon and other incidental findings Repeat CT scan with contrast done yesterday with evidence of microperforation, no abscess- see report - CRP increasin.70 --> 5.1, continues to improve - WBC improved: 13.84 --> 6.20 (resolved) - UA negative - Prior tubal ligation-- no other abdominal surgeries - PO as per GS - Continue current ATB: Zosyn, and Probiotic--flagyl dc'd due to nausea which is improved/resolved - Encourage to Ambulate QID as tolerated - Pain medication with Nash per Dr. Harris's recommendation - Recommend outpatient colonoscopy after discharge with Dr. Harris Epigastric Abdominal Pain, Improved - Liver/Lipase enzymes are normal - Serum and Stool Cx H. Pylori positive - Continue PRN Levsin/Zofran for Abdominal Cramps and PPI - Antibiotics prescribed as above - consulted with Dr. Garcia for further eval; Dr. Harris now is covering for surgical care - Will recommend possible EGD for definitive diagnosis if symptoms persist after discharge with Dr. Harris Helicobacter Pylori Infection - Treatment as above - + via stool study Back Pain - Pos for bilateral CVA test - Suspect MSK Pain/Spasm - UA to r/o UTI Skin Rash--improved - Right Groin Region - Unlikely hypersensitivity from current antibiotics - Received Steroids and H2B - Will monitor Resolved: Headache - Pain medications as indicated Mild Hypokalemia - K is now 3.8 - 2/2 GI Loss, NPO status Mild Hypomagnesemia - Mg is now 1.9 - 2/2 GI Loss, NPO status Atypical Chest Pain - Basic cardiac work up: all negative - Likely referred pain Chronic: Hx/o tubal ligation Plan: She remains clinically stable--OK to DC today, planning DC today. Call placed to Dr. Harris to assure he was ok with DC today, states he will be in later and discharge patient. Continue treatment as above DVT/PE prophylaxis-ambulation and GARCIA hose GI prophylaxis-PPI BID General Surgery following--Dr. Harris Additional orders as above Establish with a primary care provider for outpatient follow-up; F/up with Dr. Harris as outpatient after discharge also. CM/SW for discharge planning Code Status: Full Code LOS > 96 hrs due to slow response to treatment discharge dicated HANY
--- NOTE | 2017-05-13 21:15 | DISCH ---
ADMISSION DATE: 05/08/2017 DISCHARGE DATE: 05/13/2017 HOSPITAL COURSE: This is a 37-year-old female who came in on the . She was seen initially in the emergency room for a left lower quadrant abdominal pain where a CT scan showed thickening and haziness in the mid descending colon and with diverticulum. She was discharged on antibiotics from the emergency room, but returned and was then eventually admitted. She was then placed on antibiotics of Zosyn and Flagyl by the hospitalist, on which white count slowly improved. Her white count initially was 13,000 and gradually came down to a normal range. She continued to have nausea and abdominal pain and indigestion. This was aided by stopping the Flagyl. Her abdomen tenderness resolved and diet was started, which improved. At the time of her discharge, the patient was up and ambulating. Abdomen was soft. She had tolerated the diet and her white count was in normal range. She was afebrile. After 5 days of antibiotics, she was felt to have reached maximum hospital benefit and was discharged. She was not discharged on any oral antibiotics or pain medications, and medications none. Diverticulitis status post treatment, resolved with antibiotics. CONDITION ON DISCHARGE: Improved. DIET: Regular. WORK: Will be unable to work until next Thursday. ACTIVITY: Activity level, rest at home until Thursday. DISCHARGE MEDICATIONS: None. SURGERY: None. FINAL DIAGNOSIS: FOLLOW-UP: NEIL /[id number]
== END 2017-05-13 15:25 | disposition home or self-care (01) | DRG 392 ==
LOC: JD.ED 08:55 → JD.MS 13:28
PROVIDERS: ADMIT Internal Medicine; ATTEND Internal Medicine
DX: K57.20 Diverticulitis of large intestine with perforation and abscess without bleeding (principal); B96.81 Helicobacter pylori [H. pylori] as the cause of diseases classified elsewhere; E87.6 Hypokalemia; R10.13 Epigastric pain; G44.209 Tension-type headache, unspecified, not intractable; M54.9 Dorsalgia, unspecified; R21 Rash and other nonspecific skin eruption; Z88.8 Allergy status to other drugs, medicaments and biological substances; Z79.899 Other long term (current) drug therapy
CPT/HCPCS: 36415; 71020; 71020-26; 74177; 74177-26; 80048; 80053; 81001; 83735; 84484; 84703; 85025; 86140; 87046; 87328; 87329; 87338; 93005; 96361; 96374; 96375; 97161-GP; 99223; 99231; 99232; 99285; 99285-25; A9270; A9270-GY; C9113; J1170; J1200; J1885; J1956; J2175; J2405; J2543; J2920; J3480; J7030; J7042; J7050; J7060; J7120; Q9963; Q9967